=== PATIENT | male | born 1960 | race Caucasian/White ===

== ENCOUNTER → 2016-08-22 | Day surgery (SDC) | payer BC ==
--- NOTE | 2016-08-14 22:34 | HP ---
ADMITTING HISTORY AND PHYSICAL: DATE OF ADMISSION: 08/22/16 DATE OF : [birth year] AGE: 56 years. SEX: Male. SURGEON: Brian Jay MD ADMITTING DIAGNOSES: Right hydronephrosis and hydroureter. PLANNED PROCEDURE: Cystoscopy, right retrograde pyelogram, right ureteroscopy, and stent insertion. HISTORY OF PRESENT ILLNESS: Molina Aguayo is a 56-year-old gentleman who was being evaluated for reasons related to ventral abdominal hernias and was noted to have right hydronephrosis and hydroureter. He denies any flank pain, dysuria , or gross hematuria. There is no history of any prior urologic procedures and no history of renal calculi. PAST MEDICAL HISTORY: Significant for: 1. Diabetes mellitus. 2. Hypertension. 3. History of ventral hernia repair with subsequent recurrence. PAST SURGICAL HISTORY: Significant for ventral hernia repair. MEDICATIONS ON ADMISSION: 1. Metformin 1000 mg a day. 2. Lantus insulin daily. 3. Gemfibrozil 600 mg twice a day. 4. Lisinopril 20 mg a day. 5. Crestor 40 mg a day. 6. Aspirin 81 mg a day. ALLERGIES: Intravenously administered CONTRAST (rash). SOCIAL HISTORY: He is a former smoker who quit in 1998 and had a 30-pack year smoking history prior to that. PHYSICAL EXAMINATION GENERAL: Reveals a pleasant, healthy appearing, middle-aged gentleman. VITAL SIGNS: Blood pressure 122/80, pulse 93 per minute, and oxygen saturation 98% on room air. CARDIOVASCULAR: Regular rate and rhythm. S1, S2. LUNGS: Clear bilaterally. ABDOMEN: Soft with a noticeable ventral hernia. He had undergone a cystoscopy in my office, which had revealed a moderately enlarged prostate and otherwise normal appearing bladder. He has been started on Flomax 0.4 mg once a day in an effort to try and improve his bladder emptying and we will also be having urodynamics to check for possible neurogenic bladder prior to this scheduled surgery on 08/22/16. CC: LIZZETTE Gaitan; Dr. Voss; Brian Jay MD* [id number]/[facility] #: [id number] [facility]
[~2016-08-22] MED LIST: Buffered Lidocaine 1% SYR 3ML* 3 ML/SYR SYRINGE INTRADERM ONE; Buffered Lidocaine 1% SYR 3ML* 3 ML/SYR SYRINGE ONE; Furosemide IV* 10 MG/ML 2 ML VIAL (20 MG) ONE; Gentamicin ADULT (*) 140 MG in NS 0.9% 100 ML* 100 ML IVPB SCH; Iohexol 180 (CONTRAST) 10 ML SDV IV ONE; Lidocaine 2% MPF* 2 ML VIAL ONE; Ondansetron INJ* 2 MG/ML VIAL IV PRN; Ondansetron INJ* 2 MG/ML VIAL ONE; Propofol* 10 MG/ML 20 ML BTL IV PUSH ONE; Sodium Citrate/Citric Acid* 15 ML UDC ONE; Sodium Citrate/Citric Acid* 15 ML UDC PO ONE; Tamsulosin CAP* 0.4 MG ONE; cefTRIAXone(*) 2 GM ADDV.VIAL IVPB ONE; fentaNYL* 50 MCG/ML 2 ML VIAL (100 MCG VIAL) IV PRN; fentaNYL* 50 MCG/ML 2 ML VIAL (100 MCG VIAL) ONE
--- NOTE | 2016-08-22 13:34 | RAD ---
CPT II Codes: 6045F INDICATION: Right hydronephrosis. Fluoroscopic services provided for referring physician. 15 seconds of fluoroscopy time was used. 16 spot images demonstrates right hydronephrosis and hydroureter. There is placement of a right ureteral stent. There is likely a distal right ureteral obstruction. IMPRESSION: Fluoroscopic services provided for referring physician. There is right hydronephrosis noted. Right ureteral stent is placed.
[2016-08-22 15:08] VITALS: BP 113/73
--- NOTE | 2016-08-23 15:16 | OP ---
DATE OF OPERATION: 08/22/16 - [facility] DATE OF : 58 SURGEON: Brian Jay MD ANESTHESIOLOGIST: Gautam Pickett MD ANESTHESIA: General. PRE-OP DIAGNOSES: Right hydronephrosis and hydroureter. POST-OP DIAGNOSES: Right hydronephrosis and hydroureter. OPERATIVE PROCEDURE: Cystoscopy, right retrograde pyelogram, right ureteroscopy , and right stent insertion. INDICATIONS: Molina Aguayo is a 56-year-old gentleman who was evaluated for voiding dysfunction and right hydronephrosis, he is now being brought in for further evaluation and management of the hydronephrosis. COMPLICATIONS: None. STENT USED: 8.5-Wolof 28-cm stent, right ureter. POSTOPERATIVE CONDITION: Stable. OPERATIVE FINDINGS: 1. Markedly enlarged prostate. 2. Trabeculated but otherwise normal-appearing bladder. 3. Severe right hydronephrosis and hydroureter with dilated ureter all the way down to the level of the ureterovesical junction with no evidence of any obstructing lesion or calculus noted within the ureter. DESCRIPTION OF PROCEDURE: After induction of general anesthesia, the patient was placed in dorsal lithotomy position. Sequential compression devices were in place and functioning. Initial cystoscopy revealed a normal-appearing urethra, a significantly enlarged prostate, and a trabeculated but otherwise normal-appearing bladder. A guidewire was introduced into the right orifice. Retrograde pyelogram revealed significant right hydronephrosis and a very dilated ureter all the way down to the bladder. A 6-Wolof semi-rigid ureteroscope was introduced and advanced under direct vision. The orifice was a little bit narrow, but right above the orifice, the ureter was significantly dilated all the way to the level of the proximal ureter. There was no evidence of any calculus or any lesion noted within the ureter and I suspect that the obstruction was due to the ureter being compressed at the level of the thick walled bladder as it entered the bladder. An 8.5-Wolof 28-cm silicone stent was introduced and positioned under fluoroscopy with good proximal and distal positioning obtained. The plan will be to leave the stent in for 4 to 6 weeks, assess for resolution of the hydronephrosis, and then he will need close monitoring to see if there is any recurrence of the obstruction after stent removal. CC: Rani Lim, SHANIKA* [id number]/[facility] #: [id number] [facility]
== END | disposition home or self-care (01) ==
LOC: OR 10:05
PROVIDERS: ATTEND Urology
DX: N13.30 Unspecified hydronephrosis (principal); N13.4 Hydroureter; N40.0 Benign prostatic hyperplasia without lower urinary tract symptoms; E11.8 Type 2 diabetes mellitus with unspecified complications; Z79.4 Long term (current) use of insulin; I10 Essential (primary) hypertension; K43.9 Ventral hernia without obstruction or gangrene; Z87.891 Personal history of nicotine dependence
CPT/HCPCS: 74420; A9270-GY; C1876; J0696; J1580; J1940; J2405; J2704; J3010

== ENCOUNTER 2017-07-22 07:45 | Inpatient (IN) | payer BC ==
--- NOTE | 2017-07-13 12:47 | HP ---
DATE OF ADMISSION: 07/22/2017. This patient is scheduled for AA admission by Dr. James. DATE OF PREOPERATIVE HISTORY AND PHYSICAL EXAMINATION: 07/10/2017. ATTENDING SURGEON: Dr. Cristiano James * (dictated by Linh Curtis NP). CHIEF COMPLAINT: Incisional hernia and morbid obesity. HISTORY OF PRESENT ILLNESS: The patient is a 57-year-old, obese male, known to Dr. James after evaluation for a symptomatic incisional abdominal hernia. The patient is status post laparoscopic reduction and repair of incarcerated umbilical hernia with mesh by Dr. Larsen 11/08/2013. Dr. James had recommended preoperative weight loss at the time that the hernia was minimally symptomatic. The patient has tried with some success to lose approximately ten pounds. He does not wish to entertain surgical weight loss and in the meantime , the abdominal hernia has become more symptomatic. He continues to wear an abdominal binder at all times. He denies nausea, vomiting or obstipation. He periodically has abdominal discomfort and feels that the hernia has enlarged. He also has a palpable solid abdominal mass to the left of the midline. CAT scan of the abdomen and pelvis July 2016 described the mass as a cystic structure arising from the left rectus muscle. Dr. James has examined the patient and has advised open ventral hernia repair with mesh that will require component separation and excision of the cystic abdominal lesion and possible bowel resection. Dr. James discussed the nature of the surgical procedure, the rationale for the procedure, the relevant risks and benefits, and today I reviewed the expected postoperative care and recovery and the patient understands that he will spend at least one night in the hospital and possibly longer. The patient has had a chance to ask questions and stated that he understands the information and is satisfied with the answers given to his questions. He will sign surgical consent on the day of surgery. PAST MEDICAL HISTORY: Significant for type 2 diabetes, hypertension, hyperlipidemia, obstruction sleep apnea requiring the use of CPAP, and right hydronephrosis. PAST SURGICAL HISTORY: Laparoscopic reduction and repair of incarcerated umbilical hernia with mesh by Dr. Larsen 11/08/2013 and cysto with stent placement in the right ureter July 2016. MEDICATIONS: 1. Crestor 40 mg p.o. daily. 2. Metformin 1500 mg in the morning and 1000 mg in the evening. 3. Lantus SoloSTAR 50 units daily at bedtime. 4. Gemfibrozil 600 mg in the morning and 600 mg in the evening. 5. Lisinopril 20 mg p.o. daily. 6. Trulicity 1.5 mg weekly on Thursday. 7. Tamsulosin 0.4 mg p.o. daily. 8. Dulcolax laxative as needed. 9. Ipratropium nasal spray one spray prn for sinus drainage. 10. Aspirin 81 mg p.o. daily. He was instructed to hold his aspirin for five days preoperative and take the last dose 07/16/2017. ALLERGIES: VISIPAQUE CONTRAST DYE CAUSED HIVES. No latex or food allergies. FAMILY HISTORY: No known anesthesia complications, bleeding tendencies, or clotting disorders. 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 He is a former smoker for approximately 40 years. He denies the use of alcohol or other substances. REVIEW OF SYSTEMS: Constitutional: No fevers, chills, excessive fatigue. Endocrine: Type 2 diabetes, followed at [place]; fingerstick blood sugars run anywhere from 160 to 200. He denies any episodes of hypoglycemia. Respiratory : No excessive dyspnea on exertion, no chronic cough. Cardiovascular: No anginal chest pain or palpitations. Gastrointestinal: No nausea, vomiting, diarrhea, or chronic constipation. He uses stool softeners as needed. No change in bowel habits. Genitourinary: No dysuria. Musculoskeletal: No chronic back pain. Neurologic: No headache, blurred vision, areas of focal weakness or numbness. General: No history of deep vein thrombosis or pulmonary embolism. No previous anesthesia complications or bleeding tendencies and he has never received a blood transfusion. PHYSICAL EXAMINATION GENERAL: The patient is a 57-year-old, morbidly obese male in no acute distress. VITAL SIGNS: Height 73 inches, weight 281 pounds, body mass index 37. Blood pressure 118/72, pulse 90 and regular, respiratory rate 18, temperature 98.7 tympanic. SKIN: Warm, dry, intact. HEENT: Benign. NECK: Supple. No cervical lymphadenopathy. No carotid bruits. BACK: No CVA tenderness. LUNGS: Breath sounds bilaterally clear and equal. HEART: Regular rate and rhythm. No murmurs or rubs appreciated. ABDOMEN: Massively obese, soft. Known ventral hernia at previous umbilical incision site is mostly to the right of midline and is approximately 10 cm in size. The solid cystic lesion left of the midline is approximately 6 cm in size. No other obvious masses or organomegaly, but exam is limited by body habitus. EXTREMITIES: Warm without edema or skin ulcerations. GENITALIA: Exam deferred. RECTAL: Exam deferred. NEUROLOGIC: Alert and oriented times three, steady gait. IMPRESSION: 1. Incisional hernia without obstruction or gangrene. 2. Cystic abdominal mass. PLAN: AA admission to Dr. James's service on 07/22/2017 for open ventral hernia repair with mesh, excision of abdominal lesion and possible bowel resection. HECTOR CURTIS, SHANIKA [id number]/[facility] #: [id number] [facility]
[~2017-07-22 07:45] MED LIST changes: +Buffered Lidocaine 0.9% SYRIN* 5 ML/SYR SYRINGE INTRADERM ONE; -Buffered Lidocaine 1% SYR 3ML* 3 ML/SYR SYRINGE INTRADERM ONE; -Buffered Lidocaine 1% SYR 3ML* 3 ML/SYR SYRINGE ONE; +DiMENhydriNATE IV* 50 MG/ML VIAL IV PUSH PRN; +Famotidine IV* 10 MG/ML 2 ML (20 mg) IV ONE; -Furosemide IV* 10 MG/ML 2 ML VIAL (20 MG) ONE; -Gentamicin ADULT (*) 140 MG in NS 0.9% 100 ML* 100 ML IVPB SCH; -Iohexol 180 (CONTRAST) 10 ML SDV IV ONE; -Lidocaine 2% MPF* 2 ML VIAL ONE; +Morphine INJ* 2 MG/ML 1 ML CARPUJECT IV PRN; -Ondansetron INJ* 2 MG/ML VIAL ONE; +PROCHLORPERAZINE INJ 5 MG/ML 2 ML VIAL IV PRN; -Propofol* 10 MG/ML 20 ML BTL IV PUSH ONE; -Sodium Citrate/Citric Acid* 15 ML UDC ONE; -Sodium Citrate/Citric Acid* 15 ML UDC PO ONE; -Tamsulosin CAP* 0.4 MG ONE; -cefTRIAXone(*) 2 GM ADDV.VIAL IVPB ONE; -fentaNYL* 50 MCG/ML 2 ML VIAL (100 MCG VIAL) IV PRN; -fentaNYL* 50 MCG/ML 2 ML VIAL (100 MCG VIAL) ONE; +oxyCODONE/Acetamin 5/325 MG* TAB PO PRN
[2017-07-22] MEDS ORDERED: ceFAZolin 1 GM ADVAN(*) 1 GM ADDV.VIAL IVPB ONE (10:30)
[2017-07-22] MEDS ORDERED: Buffered Lidocaine 0.9% SYRIN* 5 ML/SYR SYRINGE ONE (10:30)
[2017-07-22] MEDS ORDERED: ceFAZolin 2 GM PREMIX (*) 2 GM/50 ML BAG IVPB ONE (10:30)
[2017-07-22] MEDS ORDERED: Famotidine IV* 10 MG/ML 2 ML (20 mg) ONE (10:31)
[2017-07-22] MEDS ORDERED: Heparin VIAL(*) 5000 UNITS/ML VIAL (FIVE THOUSAND) ONE (10:31)
[2017-07-22] MEDS ORDERED: KETAMINE HCL* 50 MG/ML 10 ML VIAL ONE (12:00)
[2017-07-22] MEDS ORDERED: Atracurium* 10 MG/ML 10 ML VIAL ONE (12:00)
[2017-07-22] MEDS ORDERED: Midazolam* 1 MG/ML 10 ML VIAL (10 MG) ONE (12:00)
[2017-07-22] MEDS ORDERED: fentaNYL* 50 MCG/ML 5 ML VIAL (250 MCG VIAL) ONE (12:00)
[2017-07-22] MEDS ORDERED: Lidocaine 2% PF * 5 ML VIAL ONE (13:14)
[2017-07-22] MEDS ORDERED: Propofol* 10 MG/ML 20 ML BTL IV PUSH ONE (13:14)
[2017-07-22] MEDS ORDERED: Ondansetron INJ* 2 MG/ML VIAL ONE ×2 (13:14→15:59)
[2017-07-22] MEDS ORDERED: PROCHLORPERAZINE INJ 5 MG/ML 2 ML VIAL ONE ×2 (13:14→15:59)
[2017-07-22] MEDS ORDERED: Morphine INJ* 10 MG/ML 1 ML CARPUJECT ONE (13:28)
[2017-07-22] MEDS ORDERED: Phenylephrine IV* 40 MCG/ML 10 ML SYRINGE ONE (14:46)
[2017-07-22] MEDS ORDERED: Neostigmine Methylsulfate* 2 MG/2 ML SYRINGE ONE (15:04)
[2017-07-22] MEDS ORDERED: Glycopyrrolate IV* 0.2 MG/ML 1 ML VIAL ONE (15:04)
[2017-07-22] MEDS ORDERED: Ondansetron INJ* 2 MG/ML VIAL IV PRN (15:39)
[2017-07-22] MEDS ORDERED: Docusate CAP* 100 MG PO PRN (15:39)
[2017-07-22] MEDS ORDERED: oxyCODONE/Acetamin 5/325 MG* TAB PO PRN (15:39)
[2017-07-22] MEDS ORDERED: fentaNYL* 50 MCG/ML 2 ML VIAL (100 MCG VIAL) ONE (15:45)
[2017-07-22] MEDS: fentaNYL* 50 MCG/ML 2 ML VIAL (100 MCG VIAL) IV PRN ×2 (15:46→16:02)
[2017-07-22] MEDS ORDERED: Dextrose 50% Syringe 50 ML* 25 GM/50 ML SYRINGE IV PUSH PRN (15:48)
[2017-07-22] MEDS ORDERED: IPRATROPIUM BROMIDE 0.06% BOTH NARES PRN (15:50)
--- NOTE | 2017-07-22 15:51 | SURGPN ---
Brief Operative Note - Surgery Procedures: Procedures Pre-OP Diagnoses: recurrent ventral hernia Post-op Diagnosis: same Procedure: Exploratory laparotomy, EVELIN, removal of abdominal cyst, primary repair of ventral hernia with mesh Surgeon: Erika Asst: Liset Weeksthevinoda: DEA [place] EBL: 250c IVF: 3000cc LR Specimen: 1.hernia sac 2.abdmoninal cyst Drains: #10, #7 Lazarus in subQ space Complications: None
[2017-07-22] MEDS ORDERED: Insulin LISPRO* 1 UNITS UNIT SUBCUT ONE (15:58)
[2017-07-22] MEDS ORDERED: Morphine PCA ADULT* 5 MG/ML 30 ML PCA SCH (16:00)
[2017-07-22] MEDS ORDERED: [UNRECOGNIZED DRUG - OTHER] ONE (16:27)
[2017-07-22] MEDS ORDERED: Morphine PCA ADULT* 5 MG/ML 30 ML ONE (16:31)
[2017-07-22] MEDS: Insulin LISPRO* 1 UNITS UNIT SUBCUT SCH ×2 (19:04→21:10)
[2017-07-22] MEDS: Atorvastatin* 80 MG TAB PO SCH (20:56)
[2017-07-22] MEDS: Tamsulosin CAP* 0.4 MG PO SCH (20:57)
[2017-07-22] MEDS: Gemfibrozil TAB* 600 MG PO SCH (20:57)
[2017-07-22] MEDS: Lisinopril TAB* 10 MG PO SCH (20:57)
--- NOTE | 2017-07-22 22:31 | OP ---
CC: Rani Lim NP * DATE OF OPERATION: 07/22/17 - ROOM #341 DATE OF : 58 SURGEON: Cristiano James MD HEALTHCARE SALES REPRESENTATIVE: PEARL Grimaldo ANESTHESIOLOGIST: Dr. Ch. ANESTHESIA: General anesthesia. PRE-OP DIAGNOSIS: Recurrent ventral hernia. POST-OP DIAGNOSIS: Recurrent ventral hernia. OPERATIVE PROCEDURE: Exploratory laparotomy, lysis of adhesions, removal of abdominal cyst, primary closure of ventral hernia with mesh, and removal of umbilicus. ESTIMATED BLOOD LOSS: 250 cc. IV FLUIDS: 3000 cc of lactated Ringer's. SPECIMENS: 1. Hernia sac. 2. Abdominal cyst. DRAINS: #10 and a #7 RYLAN drain left in the subcutaneous space. [place] catheter also inserted and remained at the end of the procedure. DESCRIPTION OF PROCEDURE: Mr. Aguayo was identified in the preoperative area, case discussed with him and his family member again. Consent was signed, he was marked, he was brought to the operating room, and placed on the operating room table in a supine position. Preoperative antibiotics were given. Sequential devices were placed on bilateral lower extremities. General anesthesia was induced. The patient's abdomen was clipped to hair and then prepped and draped in a standard surgical fashion. A time-out was performed. We approached the previously identified ventral hernia, this was reducible with the exception of a more firm lesion on the left side consistent with the cystic structure noted on CT scan. Incision was started on the right side of the umbilicus. This was extended approximately 4 fingerbreadths superior to the umbilicus and approximately 5 fingerbreadths below the umbilicus. We dissected slowly over the hernia sac. Hernia sac was entered, small bowel was encountered. There was no free fluid. It was a sliding type hernia with significant amount of small bowel adhered to the side wall of the hernia sac. We extended our incision superiorly. We were able to get into the more superior plain of the hernia sac and identify fascia. We had to incise the fascia superiorly and inferiorly and then we carried on with significant amount of lysis of adhesions. This took approximately an hour taking down the adhesions both at the hernia sac and small bowel adhered to itself. As we extended our work towards the left side taking down adhesions, we noted that there was another hernia with loop of small bowel extending into the medial portion of this hernia sac and this was where the known cystic lesion was based on radiographic studies. We slowly removed the small bowel from this hernia sac at its neck. I did have to open up the neck somewhat of this smaller hernia just left of the main hernia and remove a cystic structure. It was not attached to anything by this point, but it was probably because of blunt dissection that I utilized in the cavity itself. This was passed off as specimen. After additional lysis of adhesions along with omentum, this was all freed up off the abdominal wall and we were able to take the full hernia sac along with previously placed mesh off with sharp dissection. It was passed off as specimen. I made advancement flaps laterally both on the right and the left identifying fascia and clearing away this hernia sac as needed until we were able to bring the 2 edges of the fascia together in more of a Z-plasty style than on a direct left to right fashion. This was due to the second hernia portion that had the cystic lesion in the knuckle of small bowel. The defect was measured to be approximately 8 cm in the transverse fashion. The edges of the fascia would come back together with ease. The length of our linear incision through the fascia was approximately 12 cm. Next, a Ventrio Bard type mesh was opened up, 14 x 18 cm. This was parachuted in taking care to place the nonadherent side posteriorly and the permanent mesh portion of it anteriorly. We parachuted this in after placing 0 Surgipro sutures at both the lateral aspects and the superior aspect. This covered the defect nicely and we used the SecureStrap utilizing two full devices and placing a SecureStrap every centimeter along the parameter using the pockets in the mesh to appropriately place these. With the mesh intact, again we were able to bring the edges of the fascia together. We noted an additional hernia prior to placement of this mesh at the left side. This was approximately a 1 cm hernia sac. It was excised and passed off with the rest of the specimens and an 0 Vicryl suture was used in [id number] fashion to reapproximate this one portion that was far away from the other hernia. Next, we closed the fascial defect with a running #1 PDS suture starting inferiorly and superiorly and tying them in the middle. The wound was irrigated , hemostasis was achieved. A #7 RLYAN drain was placed through a stab incision on the right and a #10 RYLAN drain was passed through a stab incision to the left. This #10 drain was left to sit inferiorly in the subcutaneous space. Next, the skin michi were used to reapproximate the skin defect followed by sterile dressing and an abdominal binder. The patient was woken up and transferred to PACU in stable condition. [id number]/[facility] #: [id number] [facility]
[2017-07-23] MEDS: Heparin VIAL(*) 5000 UNITS/ML VIAL (FIVE THOUSAND) SUBCUT SCH ×3 (05:21→21:30)
[2017-07-23 06:55] LABS: Hematocrit 36 % (42-52); Hemoglobin 12.2 g/dl (14.0-18.0); Mean Corpuscular HGB Conc 34 g/dl (31-36); Mean Corpuscular Hemoglobin 30 pg (27-31); Mean Corpuscular Volume 88 fL (80-94); Mean Platelet Volume 7 um3 (7.4-10.4); Red Blood Count 4.09 10^6/ul (4.0-5.4); Red Cell Distribution Width 14 % (10.5-15); White Blood Count 8.6 10^3/ul (3.5-10.8)
[2017-07-23 07:06] LABS: BUN/Creatinine Ratio 23.8 (8-20); EGFR African American 120.7 (>60); EGFR Non-African American 93.9 (>60); Potassium 4.3 mmol/L (3.5-5.0)
[2017-07-23] MEDS: Famotidine IV* 10 MG/ML 2 ML (20 mg) IV SCH (08:29)
[2017-07-23] MEDS: Insulin LISPRO* 1 UNITS UNIT SUBCUT SCH ×4 (08:31→21:30)
[2017-07-23] MEDS: Gemfibrozil TAB* 600 MG PO SCH ×2 (08:32→21:31)
[2017-07-23] MEDS ORDERED: Famotidine IV * 20 MG in NS 0.9% 100 ML* 100 ML IVPB SCH (09:00)
--- NOTE | 2017-07-23 16:04 | PN ---
Progress Note - Progress Note Date of Service: 07/23/17 SOAP: Subjective: Pt seen and examined. We walked to arzola and back. Pt has abdominal pain. No nausea, no flatus. Objective: af vss uo good lungs clear abdo: dressing intact, tender diffusely RYLAN x2 serosang no calf tenderness labs noted Assessment: POD 1 complex ventral hernia repair Plan: advance diet slowly pain control d/c villatoro possible d/c tomorrow
[2017-07-23] MEDS ORDERED: Morphine INJ* 4 MG/ML 1 ML CARPUJECT IV PRN (16:30)
[2017-07-23] MEDS: Atorvastatin* 80 MG TAB PO SCH (17:44)
[2017-07-23] MEDS: Tamsulosin CAP* 0.4 MG PO SCH (17:45)
[2017-07-23] MEDS: Lisinopril TAB* 10 MG PO SCH (17:45)
[2017-07-23] MEDS ORDERED: diPHENhydraMINE PO* 25 MG PO PRN (18:21)
[2017-07-23] MEDS: Acetaminophen TAB* 325 MG PO PRN (21:31)
[2017-07-24] MEDS: Heparin VIAL(*) 5000 UNITS/ML VIAL (FIVE THOUSAND) SUBCUT SCH ×3 (05:41→21:01)
[2017-07-24 06:48] LABS: Hematocrit 34 % (42-52); Hemoglobin 11.4 g/dl (14.0-18.0); Mean Corpuscular HGB Conc 34 g/dl (31-36); Mean Corpuscular Hemoglobin 30 pg (27-31); Mean Corpuscular Volume 88 fL (80-94); Mean Platelet Volume 8 um3 (7.4-10.4); Red Blood Count 3.83 10^6/ul (4.0-5.4); Red Cell Distribution Width 15 % (10.5-15); White Blood Count 8.3 10^3/ul (3.5-10.8)
[2017-07-24] MEDS: Gemfibrozil TAB* 600 MG PO SCH ×2 (08:46→21:01)
[2017-07-24] MEDS: Famotidine IV* 10 MG/ML 2 ML (20 mg) IV SCH (08:46)
[2017-07-24] MEDS: Insulin LISPRO* 1 UNITS UNIT SUBCUT SCH ×4 (08:46→21:01)
[2017-07-24] MEDS: Acetaminophen TAB* 325 MG PO PRN ×3 (09:16→19:08)
--- NOTE | 2017-07-24 09:31 | PN ---
Progress Note - Progress Note Date of Service: 07/24/17 Note: Surgery Progress: S: POD #2. Feels about the same as yesterday. Heike clears, but not much appetite. No flatus or BM. No N/V. Ambulating. Voiding ok. Current Medications Acetaminophen (Tylenol Tab*) 650 mg PO Q4H PRN PRN Reason: Pain Or Temperature >101 F Last Admin: 07/24/17 09:16 Dose: 650 mg Atorvastatin Calcium (Lipitor*) 80 mg PO QPM [facility] Last Admin: 07/23/17 17:44 Dose: 80 mg Bisacodyl (Dulcolax Ec Tab*) 20 mg PO ONCE ONE Stop: 07/24/17 10:01 Dextrose (D50w Syringe 50 Ml*) 12.5 gm IV PUSH .FOR FS < 60 - SS PRN PRN Reason: FS < 60 Diphenhydramine HCl (Benadryl Po*) 25 mg PO Q6H PRN PRN Reason: RASH Docusate Sodium (Colace Cap*) 100 mg PO BID PRN PRN Reason: CONSTIPATION Last Admin: 07/24/17 05:41 Dose: 100 mg Famotidine (Pepcid Iv*) 20 mg IV DAILY [facility] Last Admin: 07/24/17 08:46 Dose: 20 mg Gemfibrozil (Lopid Tab*) 600 mg PO BID [facility] Last Admin: 07/24/17 08:46 Dose: 600 mg Heparin Sodium (Porcine) (Heparin Vial(*)) 5,000 units SUBCUT Q8HR [facility] Last Admin: 07/24/17 05:41 Dose: 5,000 units Potassium Chloride/Sodium Chloride (Ns 0.45% Kcl 20 Meq 1000 Ml*) 1,000 mls @ 100 mls/hr IV PER RATE [facility] Insulin Human Lispro (Humalog*) 0 units SUBCUT ACHS [facility] PRN Reason: Protocol Last Admin: 07/24/17 08:46 Dose: 3 units Lisinopril (Prinivil Tab*) 20 mg PO QPM [facility] Last Admin: 07/23/17 17:45 Dose: 20 mg Metformin HCl (Glucophage*) 1,500 mg PO QAM [facility] Morphine Sulfate (Morphine Inj (Syringe)*) 4 mg IV Q3H PRN PRN Reason: PAIN - BREAKTHROUGH Non-Formulary Medication (Ipratropium [place] 0.06%) 1 spray BOTH NARES DAILY PRN PRN Reason: SINUS DRAINAGE Non-Formulary Medication (Metformin Hcl [Glumetza]) 1,000 mg PO QPM [facility] Ondansetron HCl (Zofran Inj*) 4 mg IV Q4H PRN PRN Reason: NAUSEA/VOMITING Oxycodone/Acetaminophen (Percocet 5/325 Tab*) 2 tab PO Q6H PRN PRN Reason: PAIN Tamsulosin HCl (Flomax Cap*) 0.4 mg PO QPM [facility] Last Admin: 07/23/17 17:45 Dose: 0.4 mg O: Vital Signs - 8 hr 07/24/17 07/24/17 03:54 07:49 Temperature 98.3 F 98.1 F Pulse Rate 100 97 Respiratory 16 20 Rate Blood Pressure 140/79 127/66 (mmHg) O2 Sat by Pulse 96 94 Oximetry Intake and Output Last 24 Hours 07/22/17 07/23/17 07/24/17 07/25/17 06:59 06:59 06:59 06:59 Intake Total 3300 5378 Output Total 1590 1859 Balance 1710 3519 Weight 280 lb Intake: IV Fluids 3100 3003 LR 3000 3003 NS 50ML, Cefazolin 1G 50 NS 50ML, Cefazolin 2G 50 Oral 200 2375 Output: RYLAN #1 120 30 RYLAN #2 195 199 RYLAN #3 50 Urine 1150 [place] 1025 480 Estimated Blood Loss 200 Other: Date of Last Bowel 07/21/17 Movement # Bowel Movements 1 Estimated Stool Amount Medium Gen: WN, NAD; appears somewhat "down" (pt states "I just woke up") Abd: midline incision clean; no erythema; BS hypoactive; JPs w/ serosang drainage. See output above. Sacral area: 6-8 cm area of mild erythema w/ induration, most to R of midline; there are also a couple of intact bullae in the midline. Will monitor. Pressure reduction (limited sitting, etc.) Laboratory Tests 07/23/17 07/23/17 07/23/17 11:30 16:33 21:22 WBC Hgb POC Glucose (mg/dL) 202 H 188 H 169 H 07/24/17 07/24/17 05:55 07:41 WBC 8.3 Hgb 11.4 L POC Glucose (mg/dL) 188 H A: s/p laparotomy w/ EVELIN, exc intra-abd cyst (path pend), hernia repair w/ mesh ; stable w/ poss ileus (vs constipation) P: patient seen with and examined by Dr. James; will try to adv diet; try Dulcolax (he uses 4 tabs at home prn w/ good results), and begin to resume some of his diabetes regimen. Cont IV until heike po and having some bowel activity. Fortunately he's requiring no narcotic at present.
[2017-07-24] MEDS ORDERED: NS 0.45% KCl 20 Meq 1000 ML* 1,000 ML IV SCH (10:00)
[2017-07-24] MEDS ORDERED: Bisacodyl EC TAB* 5 MG PO ONE (10:00)
[2017-07-24] MEDS: metFORMIN* 500 MG TAB PO SCH (10:20)
[2017-07-24] MEDS: NS 0.45% KCl 20 Meq 1000 ML* 1,000 ML IV SCH ×2 (10:21→23:42)
[2017-07-24] MEDS: Tamsulosin CAP* 0.4 MG PO SCH (17:57)
[2017-07-24] MEDS: Atorvastatin* 80 MG TAB PO SCH (17:57)
[2017-07-24] MEDS: Lisinopril TAB* 10 MG PO SCH (17:57)
[2017-07-24] MEDS ORDERED: metFORMIN* 1,000 MG TAB PO SCH (18:00)
[2017-07-24] MEDS ORDERED: Insulin GLARGINE(*) 1 UNITS UNIT SUBCUT SCH (21:00)
[2017-07-25] MEDS: Heparin VIAL(*) 5000 UNITS/ML VIAL (FIVE THOUSAND) SUBCUT SCH (05:54)
[2017-07-25 07:39] VITALS: BP 127/68
[2017-07-25] MEDS: Insulin LISPRO* 1 UNITS UNIT SUBCUT SCH ×2 (09:28→12:19)
[2017-07-25] MEDS: Gemfibrozil TAB* 600 MG PO SCH (09:28)
[2017-07-25] MEDS: metFORMIN* 500 MG TAB PO SCH (09:28)
[2017-07-25] MEDS: Famotidine IV* 10 MG/ML 2 ML (20 mg) IV SCH (09:30)
--- NOTE | 2017-07-25 10:13 | DS ---
CC: Rani Lim NP; [facility] DISCHARGE SUMMARY: DATE OF ADMISSION: DATE OF DISCHARGE: 07/25/17 HOSPITAL COURSE: Mr. Aguayo is a 57-year-old gentleman with a recurrent ventral hernia who was worke d up as an outpatient, suffered with clinically severe obesity as well and recommendation was for rep air of recurrent hernia and weight loss. The patient underwent some weight loss prior to surgery and was admitted on same day of surgery for repair of recurrent ventral hernia. A cystic structure was also removed. Pathology is pending. Please see operative report for full details. Postoperative period, the patient had two RYLAN drains in the subcutaneous face. He was transferred to the PACU and then onto the floor where he slowly improved. He had mild ileus in the postoperative pe riod, but slowly improved. By postoperative day 3, the patient was tolerating diet with good urine o utput, able to ambulate, getting up and getting down with some difficulty. He was ultimately ready f or discharge for followup in the office. PHYSICAL EXAMINATION: On day of discharge, the patient was examined. He was afebrile. Vital signs were stable. General: Alert and oriented x3, in no apparent distress. Head, ears, eyes, nose, and throat: Normocephalic and atraumatic. Sclerae anicteric. Mucous membranes are moist. Lungs: Juany r to auscultation bilaterally. Abdomen: Soft, obese, tender. Midline incision, staple line intact with no erythema, no drainage. RYLAN drain on the right was removed, it had minimal output. RYLAN drain o n the left was maintained, it had serosanguineous output. Sacral area showed stage I sacral decubitu s ulcer 4 x 2 cm. This was nontender. No calf tenderness. DISCHARGE INSTRUCTIONS: After discussion with the patient, the patient was feeling well and had no c omplaints. Only requiring pain medication minimally. He understood plan for discharge home. Contac t me if there are any issues and we would follow up in my office on . The patient understand s that he should call with any questions. We will stop his IV fluids as well as his subcutaneous hep lilibeth. He will resume all his previous medications. [id number]/[facility] #: [id number]
== END 2017-07-25 14:00 | disposition home or self-care (01) | DRG 221 ==
LOC: AA 10:19 → SSU 18:13
PROVIDERS: ADMIT Surgery; ATTEND Surgery
PROC: 0DN80ZZ Release Small Intestine, Open Approach (ICD-10-PCS; 2017-07-22)
PROC: 0DB80ZZ Excision of Small Intestine, Open Approach (ICD-10-PCS; 2017-07-22)
PROC: 0WUF0JZ Supplement Abdominal Wall with Synthetic Substitute, Open Approach (ICD-10-PCS; principal; 2017-07-22 12:45)
DX: K43.2 Incisional hernia without obstruction or gangrene (principal); K56.7 Ileus, unspecified; E66.01 Morbid (severe) obesity due to excess calories; G47.33 Obstructive sleep apnea (adult) (pediatric); E78.5 Hyperlipidemia, unspecified; I10 Essential (primary) hypertension; E11.9 Type 2 diabetes mellitus without complications; Z96.0 Presence of urogenital implants; K63.89 Other specified diseases of intestine; K66.0 Peritoneal adhesions (postprocedural) (postinfection); Z68.38 Body mass index [BMI] 38.0-38.9, adult; Z87.891 Personal history of nicotine dependence; Z91.041 Radiographic dye allergy status
CPT/HCPCS: 36415; 80048; 85025; 88302; 88304; A9270-GY; C1776; C1781; J0690; J0780; J1644; J2250; J2270; J2405; J2704; J3010

== ENCOUNTER 2017-09-09 10:13 | Emergency (ER) | payer BC ==
[2017-09-09 10:55] VITALS: BP 124/65
--- NOTE | 2017-09-09 11:21 | UC ---
Skin Complaint HPI - HPI Summary HPI Summary: Pt presents with drainage from sore at the top of his buttocks first noticed about 1 month ago. He tells me that 1 month ago he underwent multiple hernia repairs in his abdomen and was in the hospital for 4 days. He first noticed some tenderness of her lower back/upper buttocks at this time, but tells me the nurses told him there was nothing there. Over the last month he has had discomfort, drainage, and itching at this area. Denies fever, chills, SOB, chest pain, abdominal pain, n/v/d/c, or hx of MRSA. - History of Current Complaint Chief Complaint: UCSkin Time Seen by Provider: 09/09/17 10:59 Stated Complaint: PERSONAL Hx Obtained From: Patient Onset/Duration: Gradual Onset Timing: Constant Onset Severity: Mild Current Severity: Mild Pain Intensity: 1 Pain Scale Used: 0-10 Numeric - Allergy/Home Medications Allergies/Adverse Reactions: Allergies Allergy/AdvReac Type Severity Reaction Status Date / Time visapaque contrast dye AdvReac Severe hives, Uncoded 07/22/17 10:41 rash, eye swelling Review of Systems Constitutional: Negative Skin: Other - Skin breakdown and drainage upper buttocks Respiratory: Negative Cardiovascular: Negative Gastrointestinal: Negative Neurovascular: Negative Psychological: Negative All Other Systems Reviewed And Are Negative: Yes PMH/Surg Hx/FS Hx/Imm Hx Endocrine History: Diabetes, Dyslipidemia Cardiovascular History: Hypertension - Surgical History Surgical History: Yes Surgery Procedure, Year, and Place: hernia repair with mesh 2013. wisdom teeth extracted - Family History Known Family History: Positive: Cardiac Disease, Hypertension, Diabetes - Social History Occupation: Employed Full-time Lives: With Family Alcohol Use: Rare Substance Use Type: None Smoking Status (MU): Never Smoked Tobacco Type: Cigarettes Amount Used/How Often: 1-3 pack/day Have You Smoked in the Last Year: No When Did the Patient Quit Smoking/Using Tobacco: 1996 - Immunization History Most Recent Influenza Vaccination: fall 2014 Most Recent Tetanus Shot: "within past 10 years" Most Recent Pneumonia Vaccination: never Physical Exam Triage Information Reviewed: Yes Appearance: Well-Appearing, No Pain Distress, Well-Nourished Vital Signs: Initial Vital Signs Temp 98.4 F 09/09/17 10:49 Pulse 67 09/09/17 10:49 Resp 18 09/09/17 10:49 BP 124/65 09/09/17 10:49 Pulse Ox 98 09/09/17 10:49 Vital Signs Reviewed: Yes Neck: Positive: Supple, Nontender, No Lymphadenopathy Respiratory: Positive: Lungs clear, Normal breath sounds, No respiratory distress, No accessory muscle use Cardiovascular: Positive: RRR, No Murmur, Pulses Normal Neurological: Positive: Alert Psychological: Positive: Age Appropriate Behavior Skin: Positive: Other - Stage 2/3 pressure ulcer at the apex of the intergluteal cleft 1.5cm in diameter. Surrounding granulation tissue and mild erythema. Mild purulent drainage. Mildly tender. No streaking, bleeding, edema, or necrotic tissue. Course/Dx - Course Course Of Treatment: Mepilex dressing placed. Wound culture obtained. Rx for bactrim to cover for infection as he is diabetic and MRSA coverage as he was hospitalized last month. Advised to f/u with PCP within 3-5 days for dressing change and potential wound clinic referral. - Diagnoses Provider Diagnoses: Stage 2 pressure ulcer apex of intergluteal cleft Discharge - Discharge Plan Condition: Stable Disposition: HOME Prescriptions: Sulfamethox/Trimethoprim DS* [Bactrim DS 800/160 TAB*] 1 tab PO BID #14 tab Patient Education Materials: How to Prevent Pressure Ulcers (ED), Pressure Ulcer (ED) Referrals: Rani Soler NP [Primary Care Provider] - Additional Instructions: If you develop a fever, shortness of breath, chest pain, new or worsening symptoms - please call your PCP or go to the ED. 1) Please schedule a follow up appointment with your PCP within the next 3-5 days for continued wound care. 2) Keep the dressing clean, dry, and intact at all times until your follow up appointment.
== END 2017-09-09 11:40 | disposition home or self-care (01) ==
LOC: UCEAST 10:13
DX: L89.302 Pressure ulcer of unspecified buttock, stage 2 (principal); E78.5 Hyperlipidemia, unspecified
CPT/HCPCS: 87070; 87205; 87640; 87641; 99212; G0463

== ENCOUNTER 2019-02-21 09:30 | Emergency (ER) | payer BC ==
--- NOTE | 2019-02-21 09:36 | UC ---
Ear Complaint HPI - HPI Summary HPI Summary: 58 yo male presents with hearing aid ear bud stuck in his left ear. He went to remove his hearing aids this morning and noticed the LEFT ear bud was gone. He believes it is lodged within his left ear as this has happened many times in the past. Denies pain - History of Current Complaint Stated Complaint: LT EAR BUD REMOVAL Time Seen by Provider: 02/21/19 09:36 Hx Obtained From: Patient Onset/Duration: Sudden Onset Severity Currently: None - Allergies/Home Medications Allergies/Adverse Reactions: Allergies Allergy/AdvReac Type Severity Reaction Status Date / Time visapaque contrast dye AdvReac Severe hives, Uncoded 02/21/19 09:38 rash, eye swelling PMH/Surg Hx/FS Hx/Imm Hx - Additional Past Medical History Additional PMH: SBO Endocrine History: Diabetes, Dyslipidemia Cardiovascular History: Hypertension - Surgical History Surgical History: Yes Surgery Procedure, Year, and Place: hernia repair with mesh 2013. wisdom teeth extracted - Family History Known Family History: Positive: Cardiac Disease, Hypertension, Diabetes - Social History Alcohol Use: Rare Substance Use Type: None Smoking Status (MU): Never Smoked Tobacco Type: Cigarettes Amount Used/How Often: 1-3 pack/day Have You Smoked in the Last Year: No When Did the Patient Quit Smoking/Using Tobacco: 1996 - Immunization History Most Recent Influenza Vaccination: fall 2014 Most Recent Tetanus Shot: "within past 10 years" Most Recent Pneumonia Vaccination: never Review of Systems All Other Systems Reviewed And Are Negative: Yes Constitutional: Positive: Negative Skin: Positive: Negative Eyes: Positive: Negative ENT: Positive: Other - ear bud within left ear Respiratory: Positive: Negative Cardiovascular: Positive: Negative Neurological: Positive: Negative Psychological: Positive: Negative Physical Exam - Summary Physical Exam Summary: GENERAL: NAD. WDWN. No pain distress. SKIN: No rashes, sores, lesions, or open wounds. HEENT: Head: AT/NC Ears: Hearing grossly normal. Levin/black ear bud within left ear canal. S/p removal: TM intact and WNL. CHEST: No accessory muscle use. Breathing comfortably and in no distress. CV: Pulses intact. Cap refill <2seconds NEURO: Alert. PSYCH: Age appropriate behavior. Triage Information Reviewed: Yes Vital Signs: Vital Signs: Temp Pulse Resp BP Pulse Ox 97.6 F 70 16 143/76 99 02/21/19 09:41 02/21/19 09:41 02/21/19 09:41 02/21/19 09:41 02/21/19 09:41 Vital Signs Reviewed: Yes Ear Complaint Course/Dx - Course Course Of Treatment: Left ear bud removed from left ear canal without difficulty with forceps. - Differential Dx/Diagnosis Provider Diagnosis: Foreign body of ear, left Discharge - Sign-Out/Discharge Documenting (check all that apply): Patient Departure All imaging exams completed and their final reports reviewed: No Studies - Discharge Plan Condition: Stable Disposition: HOME Referrals: Piero Banda MD [Primary Care Provider] - Additional Instructions: If you develop a fever, shortness of breath, chest pain, new or worsening symptoms - please call your PCP or go to the ED immediately. - Billing Disposition and Condition Condition: STABLE Disposition: Home
--- OUTSIDE RECORDS SUMMARY | 2019-02-21 09:38 | XMS REPORT | Continuity of Care Document ---
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 Onset: 05/07/2012 Type 2 diabetes mellitus Desiree Lutz M.D. Onset: 05/17/2012 Mixed hyperlipidemia Desiree Lutz M.D. Onset: 05/17/2012 Pure hyperglyceridemia Desiree Lutz M.D. Onset: 05/17/2012 Edema Desiree Lutz M.D. Onset: 05/17/2012 Essential hypertension LEATHA Garsia Onset: 10/26/2015 Family History Date Family Member(s) Observation Comments : (07/2012) Father due to CHF Mother Obesity Mother COPD Mother Dementia Social History Type Date Description Comments Sex Unknown Marital Status Lives With Daughter Lives With Spouse Diet Average daily caloric intake excessive Diet ; Reports increasing daily fiber intake. Reports trying to decrease night time food intake. Reports trying to decrease intake of concentrated sweets. Occupation Currently Working [employer] [facility] [place] Work Status Currently Working Tobacco Use Start: Unknown Former Cigarette End: Unknown Smoker 2 Packs Daily Cigarette Use Pack Years - 69 Tobacco Use Start: Unknown ; Quit Smoking in 1998 Smoking Status Reviewed: 07/16/17 ; Quit Smoking in 1998 ETOH Use Denies alcohol use Recreational Drug Use Denies Drug Use Tobacco Use Start: Unknown Patient is a former End: Unknown smoker Exercise Type/Frequency Exercises rarely Exercise Limitations Bilateral Foot Pain With Exercise Allergies, Adverse Reactions, Alerts Active Allergies Reaction Severity Comments Date Visipaque hives after abd CT with oral and IV 07/19/2016 contrast Inactive Allergies NKDA 07/02/2012 Medications Active Medications SIG Qnty Indications Ordering Date Provider Miralax 1 capful mixed as 510units K59.00 Piero 02/02/2019 3350NF per directions in MD Solo Powder water by mouth daily until stooling resumes. as needed after 2 days without stool. Aspirin Ec 1 by mouth every 90tabs Rani Lim, 03/07/2015 81mg day [facility] Tablets DR Whitney 1 tab po in the 90tabs Rani Lim, 03/07/2015 40mg evening [employer] Tablets Cpap please provide new Rani Lim, 10/30/2014 cpap with heater [employer] [facility] and humidfier Lantus Solostar Pen use with lantus SixBoxes Rani Lim, 02/02/2013 [place] pen daily 5x/day [employer] Compression use as directed 3Pairs R60.9 Rani Lim, 09/08/2012 Stockings for treatment of [employer] 20-30 peripheral edema any color but black Lisinopril take one tablet by 90tabs Piero 05/17/2012 20mg mouth every day MD Solo Tablets Gemfibrozil take one tablet by 180tabs Piero 600mg mouth twice a day MD Solo Tablets Metformin HCL take 1 and 1/2 220tabs Piero tablets by mouth MD Solo 1000mg Tablets every morning and 1 in the evening Lantus Solostar take 100 units 180units Piero daily as directed MD Solo 100Unit/ML Solution Pen-Inject Dulcolax 1 tab by mouth Unknown 5mg every night after Tablets DR dinner. Tamsulosin HCL 1 by mouth every Unknown day 0.4mg Capsules Trulicity Unknown 1.5mg/0.5ML Solution Pen-Inject Ipratropium [place] 1 spray into each 15ml Piero nostril every 6 MD Solo 0.06% Solution hours as needed History Medications Mepilex Dressing apply to wound 1Box L89.152 Rani Lim, 09/15/2017 - as directed [facility] 02/12/2018 Amoxicillin/Clavulanat 1 by mouth twice 20tabs J01.90 Shawnti R. 2016 - e Potassium a day for 10 [place], [facility] 06/25/2017 875-125mg days for Tablets infection Proair HFA 1-2 puffs every 8.500gm Piero 11/14/2016 - 108(90Base) 6 hours as MD Solo 01/27/2017 mcg/Act Aerosol needed Prednisone 3 by mouth every 13tabs L50.0 Kristopher Hurley, 07/19/2016 - 20mg Tablets day x 2 days, 2 M.D. 10/17/2016 by mouth every day x 2 days, 1 by mouth every day x 2 day, 1/2 by mouth every day x 2 days Hydrocortisone apply to 30gm Rani Lim, 01/29/2016 - 2.5% Cream affected area up [facility] 10/22/2016 to 4 x/day Cyclobenzaprine HCL 1-2 by mouth 30tabs M54.9 Rani Lim, 09/10/2015 - 5mg three times a [facility] 06/02/2016 Tablets day for muscle spasm, may cause drowsiness Mupirocin apply a small 22gm L73.9 Rani Lim, 08/01/2015 - 2% Ointment amount to [facility] 10/22/2016 affected area(s) daily until resolved Sulfamethoxazole/Trime take 1 tablet 20tabs Rani Lim, 08/01/2015 - thoprim DS twice a day for [employer] 09/10/2015 800-160mg 10 days Tablets Sulfamethoxazole/Trime 1 by mouth twice 20tabs 682.2 [place] RAbdullahi 2014 - thoprim DS a day for [place], [facility] 2015 800-160mg infection Tablets Novolog Flexpen use 1-7 units 5units Rani Lim, 01/16/2014 - tid based on [facility]- 06/02/2016 100Unit/ML Solution sliding scale Pen-Inject Bactroban apply a thin 22gm 684 Desiree Emery 12/12/2013 - 2% Ointment coat of the [place] Lutz 10/22/2016 ointment to the skin twice daily Abdominal Support 4 panel 2units Desiree Emery 11/28/2013 - 2X/3X-Large abdominal rAgentina Lutz 02/20/2015 2X/3X LG [facility] [place]. Use as directed to support hernia. Hernia Use as directed 1units 553.1 Desiree Emery 11/07/2013 - Belt/Double/X-Large [place] Lutz 11/28/2013 Mis Keflex 1 po tid 30caps 682.9 Desiree Emery 03/03/2013 - 500mg Capsules [place] Lutz 03/10/2013 Adam Hose use as directed 2Pairs 782.3 Desiree Emery 09/03/2012 - [place] Lutz 09/08/2012 Crestor take one tablet 90tabs Rani Lim, 05/17/2012 - 20mg Tablets by mouth at [facility] 03/07/2015 bedtime Fluticasone Propionate Unknown - 02/20/2015 50mcg/Act Suspension Crestor Take one pill po 30tabs Unknown - 10mg Tablets daily at 05/17/2012 Novolog Flexpen 18 units SC in 5units Desiree M. - the morning and [place] Lutz 01/16/2014 100Unit/ML Solution 30 units SC in the evening Lisinopril Take one tablet 90tabs Desiree M. - 10mg Tablets po daily [place] Lutz 05/17/2012 Bydureon Unknown - 2mg Pen 03/07/2015 Immunizations CPT Code Status Date Vaccine Lot # 16918 Given 08/18/2018 Influenza Virus Vaccine, Quadrivalent, 3 Yr > [id number] Quad, Preserv Free 23510 Given 07/16/2017 Influenza Virus Vaccine, Quadrivalent, 3 Yr > [id number] Quad, Preserv Free 03170 Given 05/20/2016 Influenza Virus Vaccine, Quadrivalent, 3 Yr > [id number] Quad, Preserv Free 94004 Given 07/06/2015 Influenza Virus Vaccine, Quadrivalent, 3 Yr > [id number] Quad, Preserv Free 46373 Given 05/01/2014 Pneumovax 23 (PPSV23) 65+ years or high risk 2 to [id number] 63 year old 34808 Given 05/01/2014 Influenza Virus Vaccine, Quadrivalent, 3 Yr > [id number] Quad, Preserv Free 04250 Given 04/25/2013 Influenza Vaccine-Preservative Free 3 Yrs And [id number] Above 83798 Given 05/07/2012 Influenza Vaccine-Preservative Free 3 Yrs And [id number] Above 50731 Given 04/14/2011 Tdap (Adacel) Vital Signs Date Vital Result Comment 02/02/2019 4:13pm Weight 291.00 lb Weight 131.998 kg BP Systolic 130 mmHg BP Diastolic 74 mmHg Heart Rate 86 /min Body Temperature 97.7 F Respiratory Rate 20 /min 08/18/2018 2:16pm Weight 298.00 lb Weight 135.173 kg BP Systolic 122 mmHg BP Diastolic 70 mmHg Heart Rate 84 /min Body Temperature 98.4 F Respiratory Rate 16 /min Height 72 inches 6'0" BMI (Body Mass Index) 40.4 kg/m2 O2 % BldC Oximetry 97 % 02/12/2018 9:32am Weight 285.00 lb Weight 129.276 kg BP Systolic 110 mmHg BP Diastolic 70 mmHg Heart Rate 88 /min Body Temperature 98.1 F Respiratory Rate 18 /min O2 % BldC Oximetry 97 % 09/15/2017 3:29pm Weight 280.00 lb Weight 127.008 kg BP Systolic 106 mmHg BP Diastolic 54 mmHg Heart Rate 68 /min Body Temperature 97.4 F Respiratory Rate 16 /min O2 % BldC Oximetry 98 % 07/16/2017 3:33pm Weight 286.00 lb Weight 129.730 kg BP Systolic 122 mmHg BP Diastolic 60 mmHg Heart Rate 75 /min Body Temperature 97.1 F O2 % BldC Oximetry 99 % 06/15/2017 1:52pm Weight 284.00 lb Weight 128.822 kg BP Systolic 122 mmHg BP Diastolic 62 mmHg Heart Rate 85 /min Body Temperature 97.3 F Respiratory Rate 16 /min O2 % BldC Oximetry 98 % 01/27/2017 4:42pm Weight 293.00 lb Weight 132.905 kg BP Systolic 126 mmHg BP Diastolic 70 mmHg Heart Rate 64 /min Body Temperature 96.4 F Respiratory Rate 16 /min O2 % BldC Oximetry 98 % 11/14/2016 4:22pm Weight 283.00 lb Weight 128.369 kg BP Systolic 150 mmHg BP Diastolic 70 mmHg Heart Rate 96 /min Body Temperature 98.0 F Respiratory Rate 16 /min O2 % BldC Oximetry 97 % 10/22/2016 11:19am Weight 281.00 lb Weight 127.462 kg BP Systolic 124 mmHg BP Diastolic 82 mmHg Heart Rate 84 /min 08/06/2016 3:00pm Weight 292.00 lb Weight 132.451 kg BP Systolic 112 mmHg BP Diastolic 56 mmHg Heart Rate 98 /min Body Temperature 98.0 F Respiratory Rate 20 /min O2 % BldC Oximetry 98 % 07/19/2016 9:11am Weight 293.00 lb Weight 132.905 kg BP Systolic 124 mmHg BP Diastolic 72 mmHg Heart Rate 70 /min Body Temperature 98.3 F Respiratory Rate 16 /min O2 % BldC Oximetry 98 % 06/02/2016 1:33pm Weight 294.00 lb Weight 133.358 kg BP Systolic 116 mmHg BP Diastolic 66 mmHg Heart Rate 85 /min Body Temperature 98.0 F Respiratory Rate 16 /min Height 73 inches 6'1" BMI (Body Mass Index) 38.8 kg/m2 O2 % BldC Oximetry 98 % 04/28/2016 3:06pm Weight 293.00 lb Weight 132.905 kg BP Systolic 118 mmHg BP Diastolic 62 mmHg Heart Rate 96 /min Body Temperature 97.9 F Respiratory Rate 20 /min 01/29/2016 9:16am Weight 291.00 lb Weight 131.998 kg BP Systolic 120 mmHg BP Diastolic 63 mmHg Heart Rate 63 /min Body Temperature 98.3 F 01/18/2016 2:58pm Weight 299.00 lb Weight 135.626 kg BP Systolic 120 mmHg BP Diastolic 68 mmHg Heart Rate 96 /min Body Temperature 98.3 F 10/26/2015 8:50am Weight 293.00 lb Weight 132.905 kg BP Systolic 120 mmHg BP Diastolic 72 mmHg Heart Rate 68 /min 09/10/2015 3:17pm Weight 299.00 lb Weight 135.626 kg BP Systolic 122 mmHg BP Diastolic 60 mmHg Heart Rate 68 /min 08/01/2015 4:56pm Weight 304.00 lb Weight 137.894 kg BP Systolic 122 mmHg BP Diastolic 70 mmHg Heart Rate 76 /min Body Temperature 97.5 F 06/26/2015 8:54am Weight 299.00 lb Weight 135.626 kg BP Systolic 130 mmHg BP Diastolic 68 mmHg Heart Rate 88 /min 03/22/2015 3:46pm Weight 306.00 lb Weight 138.802 kg BP Systolic 130 mmHg BP Diastolic 60 mmHg Heart Rate 76 /min Body Temperature 97.5 F 03/07/2015 9:23am Weight 305.00 lb Weight 138.348 kg BP Systolic 120 mmHg BP Diastolic 68 mmHg Heart Rate 52 /min 11/24/2014 3:38pm Weight 304.00 lb Weight 137.894 kg BP Systolic 124 mmHg BP Diastolic 68 mmHg Heart Rate 76 /min 10/09/2014 3:38pm Weight 305.00 lb Weight 138.348 kg BP Systolic 130 mmHg BP Diastolic 64 mmHg Heart Rate 92 /min Body Temperature 99.1 F O2 % BldC Oximetry 96 % 07/31/2014 3:25pm Weight 312.00 lb Weight 141.523 kg BP Systolic 114 mmHg BP Diastolic 64 mmHg Heart Rate 68 /min 05/01/2014 2:00pm Weight 304.00 lb Weight 137.894 kg BP Systolic 122 mmHg BP Diastolic 70 mmHg Heart Rate 80 /min Height 73 inches 6'1" BMI (Body Mass Index) 40.1 kg/m2 03/16/2014 9:21am Weight 307.00 lb Weight 139.255 kg BP Systolic 108 mmHg BP Diastolic 70 mmHg Heart Rate 72 /min Body Temperature 97.7 F 12/12/2013 2:50pm Weight 304.00 lb Weight 137.894 kg BP Systolic 126 mmHg BP Diastolic 68 mmHg Heart Rate 84 /min 11/07/2013 11:57am Weight 303.00 lb Weight 137.441 kg BP Systolic 138 mmHg BP Diastolic 82 mmHg Heart Rate 84 /min Height 72.50 inches 6'0.50" BMI (Body Mass Index) 40.5 kg/m2 07/11/2013 2:34pm Weight 297.00 lb Weight 134.719 kg BP Systolic 118 mmHg BP Diastolic 70 mmHg Heart Rate 88 /min Body Temperature 98.0 F 04/25/2013 1:55pm Weight 300.00 lb Weight 136.080 kg BP Systolic 128 mmHg BP Diastolic 70 mmHg Heart Rate 76 /min Height 72.50 inches 6'0.50" BMI (Body Mass Index) 40.1 kg/m2 03/11/2013 8:32am Weight 299.00 lb Weight 135.626 kg BP Systolic 138 mmHg BP Diastolic 62 mmHg Heart Rate 72 /min Body Temperature 96.6 F 03/08/2013 11:54am Weight 297.00 lb Weight 134.719 kg BP Systolic 110 mmHg BP Diastolic 70 mmHg Heart Rate 70 /min Body Temperature 97.0 F O2 % BldC Oximetry 98 % 03/05/2013 9:16am Weight 301.00 lb Weight 136.534 kg BP Systolic 110 mmHg BP Diastolic 60 mmHg Body Temperature 97.0 F 03/03/2013 3:15pm Weight 296.00 lb Weight 134.266 kg BP Systolic 120 mmHg BP Diastolic 80 mmHg Heart Rate 88 /min 09/03/2012 3:39pm Weight 300.00 lb Weight 136.080 kg BP Systolic 120 mmHg BP Diastolic 60 mmHg Heart Rate 96 /min 07/02/2012 4:17pm Weight 304.00 lb Weight 137.894 kg BP Systolic 112 mmHg BP Diastolic 64 mmHg Heart Rate 88 /min 05/17/2012 3:08pm Weight 297.00 lb Weight 134.719 kg BP Systolic 110 mmHg BP Diastolic 60 mmHg Heart Rate 100 /min 05/07/2012 8:50am Weight 300.00 lb Weight 136.080 kg BP Systolic 116 mmHg BP Diastolic 72 mmHg Heart Rate 68 /min Height 72.5 inches 6'0.50" BMI (Body Mass Index) 40.1 kg/m2 Results Test Date Facility Test Result H/L Range Note Creatinine 04/07/2018 [facility] Creatinine 0.84 mg/ dL N 0.67-1.17 [phone] Egfr Non- 93.5 >60 Egfr 113.2 >60 1 Laboratory test 04/07/2018 [facility] PSA Screening 0.803 0-4.0 2 finding [phone] Laboratory test 04/07/2018 [facility] Hemoglobin A1c 8.1 % High 4.0-5.6 3 finding [phone] Comp Metabolic 04/07/2018 [facility] Sodium 139 mmol/ L N 135-145 Panel [phone] Potassium 4.7 mmol/L N 3.5-5.0 Chloride 108 mmol/L N 101-111 Co2 Carbon Dioxide 26 mmol/L N 22-32 Anion Gap 5 mmol/L N 2-11 Glucose 145 mg/dL High 70-100 Blood Urea Nitrogen 24 mg/dL N 6-24 Creatinine 0.83 mg/dL N 0.67-1.17 BUN/Creatinine Ratio 28.9 High 8-20 Calcium 9.6 mg/dL N 8.6-10.3 Total Protein 6.2 g/dL Low 6.4-8.9 Albumin 4.0 g/dL N 3.2-5.2 Globulin 2.2 g/dL N 2-4 Albumin/Globulin Ratio 1.8 N 1-3 Total Bilirubin 0.40 mg/dL N 0.2-1.0 Alkaline Phosphatase 51 U/L N 34-104 Egfr Non- 94.8 >60 Egfr 114.7 >60 4 CBC Auto Diff 04/07/2018 [facility] White Blood 4.9 10^3/uL N 3.5-10.8 [phone] Count Red Blood Count 4.26 10^6/uL N 4.00-5.40 Hemoglobin 13.0 g/dL Low 14.0-18.0 Hematocrit 38 % Low 42-52 Mean Corpuscular Volume 88 fL N 80-94 Mean Corpuscular Hemoglobin 30 pg N 27-31 Mean Corpuscular HGB Conc 35 g/dL N 31-36 Red Cell Distribution Width 14 % N 10.5-15 Platelet Count 185 10^3/uL N 150-450 Mean Platelet Volume 8.0 um3 N 7.4-10.4 Abs Neutrophils 2.7 10^3/uL N 1.5-7.7 Abs Lymphocytes 1.6 10^3/uL N 1.0-4.8 Abs Monocytes 0.4 10^3/uL N 0-0.8 Abs Eosinophils 0.2 10^3/uL N 0-0.6 Abs Basophils 0 10^3/uL N 0-0.2 Abs Nucleated RBC 0 10^3/uL Granulocyte % 55.3 % N 38-83 Lymphocyte % 32.2 % N 25-47 Monocyte % 7.7 % High 0-7 Eosinophil % 3.9 % N 0-6 Basophil % 0.9 % N 0-2 Nucleated Red Blood Cells % 0.1 Statin 04/07/2018 [facility] Ast 16 U/L N 13-39 [phone] Alt 17 U/L N 7-52 Lipid Profile 04/07/2018 [facility] Triglycerides 390 mg/dL 5 (Trig/Chol/HDL) [phone] Cholesterol 123 mg/dL 6 HDL Cholesterol 28.6 mg/dL 7 LDL Cholesterol 16 mg/dL 8 Laboratory 04/07/2018 [facility] Hepatitis C Nonreactive Nonreactive test finding [phone] Antibody Laboratory 09/09/2017 [facility] Wound/Misc SEE RESULT 9, test finding [phone] Culture-Gram BELOW 10 Stain MRSA/S. aureus Ssti PCR SEE RESULT BELOW 11 Lipid Profile 08/05/2017 [facility] Triglycerides 245 mg/dL 12 (Trig/Chol/HDL) [phone] Cholesterol 130 mg/dL 13 HDL Cholesterol 31.1 mg/dL 14 LDL Cholesterol 50 mg/dL 15 CBC Auto Diff 08/05/2017 [facility] White Blood 8.3 10^3/uL N 3.5-10.8 [phone] Count Red Blood Count 4.08 10^6/uL N 4.0-5.4 Hemoglobin 12.2 g/dL Low 14.0-18.0 Hematocrit 36 % Low 42-52 Mean Corpuscular Volume 89 fL N 80-94 Mean Corpuscular Hemoglobin 30 pg N 27-31 Mean Corpuscular HGB Conc 34 g/dL N 31-36 Red Cell Distribution Width 15 % N 10.5-15 Platelet Count 289 10^3/uL N 150-450 Mean Platelet Volume 7 um3 Low 7.4-10.4 Abs Neutrophils 5.1 10^3/uL N 1.5-7.7 Abs Lymphocytes 1.9 10^3/uL N 1.0-4.8 Abs Monocytes 0.5 10^3/uL N 0-0.8 Abs Eosinophils 0.8 10^3/uL High 0-0.6 Abs Basophils 0.1 10^3/uL N 0-0.2 Abs Nucleated RBC 0.01 10^3/uL Granulocyte % 61.1 % N 38-83 Lymphocyte % 23.0 % Low 25-47 Monocyte % 5.8 % N 1-9 Eosinophil % 9.2 % High 0-6 Basophil % 0.9 % N 0-2 Nucleated Red Blood Cells % 0.1 Laboratory test 08/05/2017 [facility] Hemoglobin A1c 7.7 % High 4.0-5.6 16 finding [phone] Comp Metabolic 08/05/2017 [facility] Sodium 137 N 133-145 Panel [phone] mmol/L Potassium 4.9 mmol/L N 3.5-5.0 Chloride 103 mmol/L N 101-111 Co2 Carbon Dioxide 28 mmol/L N 22-32 Anion Gap 6 mmol/L N 2-11 Glucose 121 mg/dL High 70-100 Blood Urea Nitrogen 18 mg/dL N 6-24 Creatinine 0.86 mg/dL N 0.67-1.17 BUN/Creatinine Ratio 20.9 High 8-20 Calcium 9.8 mg/dL N 8.6-10.3 Total Protein 6.7 g/dL N 6.4-8.9 Albumin 4.1 g/dL N 3.2-5.2 Globulin 2.6 g/dL N 2-4 Albumin/Globulin Ratio 1.6 N 1-3 Total Bilirubin 0.30 mg/dL N 0.2-1.0 Alkaline Phosphatase 54 U/L N 34-104 Alt 15 U/L N 7-52 Ast 15 U/L N 13-39 Egfr Non- 91.3 >60 Egfr 117.5 >60 17 Hemoglobin/Hematacrit 07/10/2017 [facility] Hemoglobin 13.1 Low 14.0-18.0 [phone] g/dL Hematocrit 39 % Low 42-52 Basic Metabolic 07/10/2017 [facility] Sodium 132 mmol /L Low 133-145 Panel [phone] Potassium 4.6 mmol/L N 3.5-5.0 Chloride 101 mmol/L N 101-111 Co2 Carbon Dioxide 24 mmol/L N 22-32 Anion Gap 7 mmol/L N 2-11 Glucose 208 mg/dL High 70-100 Blood Urea Nitrogen 21 mg/dL N 6-24 Creatinine 0.84 mg/dL N 0.67-1.17 BUN/Creatinine Ratio 25.0 High 8-20 Calcium 9.5 mg/dL N 8.6-10.3 Egfr Non- 93.9 >60 Egfr 120.7 >60 18 Laboratory test 06/11/2017 [facility] PSA Screening 1.139 N 0-4.0 19 finding [phone] Laboratory test 06/01/2017 [facility] LDL Cholesterol 50 mg/dL N 20 finding [phone] Direct Lipid Panel 06/01/2017 [facility] Triglycerides 461 mg/dL N 21 [phone] Cholesterol 138 mg/dL N 22 HDL Cholesterol 31.4 mg/dL N 23 LDL Cholesterol (SEE NOTE) mg/dL N 24 CMP - Comprehensive 06/01/2017 [facility] Sodium 134 mmol/L N 133-145 Metabolic [phone] Potassium 4.7 mmol/L N 3.5-5.0 Chloride 104 mmol/L N 101-111 Co2 Carbon Dioxide 23 mmol/L N 22-32 Anion Gap 7 mmol/L N 2-11 Glucose 181 mg/dL High 70-100 Blood Urea Nitrogen 17 mg/dL N 6-24 Creatinine 0.75 mg/dL N 0.67-1.17 BUN/Creatinine Ratio 22.7 High 8-20 Calcium 9.4 mg/dL N 8.6-10.3 Total Protein 6.9 g/dL N 6.4-8.9 Albumin 4.3 g/dL N 3.2-5.2 Globulin 2.6 g/dL N 2-4 Albumin/Globulin Ratio 1.7 N 1-3 Total Bilirubin 0.30 mg/dL N 0.2-1.0 Alkaline Phosphatase 51 U/L N 34-104 Alt 17 U/L N 7-52 Ast 14 U/L N 13-39 Egfr Non- 107.0 N >60 Egfr 137.6 N >60 25 Laboratory test 06/01/2017 [facility] Hemoglobin A1c 7.6 % High 4.0-5.6 26 finding [phone] (Glyco HGB) CBC W/Auto 06/01/2017 [facility] White Blood 6.4 N 3.5-10.8 Differential [phone] Count 10^3/uL Red Blood Count 4.49 10^6/uL N 4.0-5.4 Hemoglobin 13.5 g/dL Low 14.0-18.0 Hematocrit 39 % Low 42-52 Mean Corpuscular Volume 88 fL N 80-94 Mean Corpuscular Hemoglobin 30 pg N 27-31 Mean Corpuscular HGB Conc 34 g/dL N 31-36 Red Cell Distribution Width 14 % N 10.5-15 Platelet Count 221 10^3/uL N 150-450 Mean Platelet Volume 8 um3 N 7.4-10.4 Abs Neutrophils 3.9 10^3/uL N 1.5-7.7 Abs Lymphocytes 1.8 10^3/uL N 1.0-4.8 Abs Monocytes 0.4 10^3/uL N 0-0.8 Abs Eosinophils 0.2 10^3/uL N 0-0.6 Abs Basophils 0.1 10^3/uL N 0-0.2 Abs Nucleated RBC 0.01 10^3/uL N Granulocyte % 60.6 % N 38-83 Lymphocyte % 27.9 % N 25-47 Monocyte % 6.3 % N 1-9 Eosinophil % 3.6 % N 0-6 Basophil % 1.6 % N 0-2 Nucleated Red Blood Cells % 0.1 N Laboratory test 01/23/2017 [facility] PSA Screening 0.919 ng/mL N 0-4.000 27 finding [phone] Lipid Profile 01/23/2017 [facility] Triglycerides 252 mg/dL N 28 (Trig/Chol/HDL) [phone] Cholesterol 115 mg/dL N 29 HDL Cholesterol 28.3 mg/dL N 30 LDL Cholesterol 36 mg/dL N 31 Laboratory test 01/23/2017 [facility] Hemoglobin A1c 7.6 % High Less than 32 finding [phone] 6.0 Comp Metabolic 01/23/2017 [facility] Sodium 136 N 133-145 Panel [phone] mmol/L Potassium 4.8 mmol/L N 3.5-5.0 Chloride 104 mmol/L N 101-111 Co2 Carbon Dioxide 27 mmol/L N 22-32 Anion Gap 5 mmol/L N 2-11 Glucose 167 mg/dL High 70-100 Blood Urea Nitrogen 16 mg/dL N 6-24 Creatinine 0.80 mg/dL N 0.67-1.17 BUN/Creatinine Ratio 20.0 N 8-20 Calcium 9.7 mg/dL N 8.6-10.3 Total Protein 6.7 g/dL N 6.4-8.9 Albumin 4.2 g/dL N 3.2-5.2 Globulin 2.5 g/dL N 2-4 Albumin/Globulin Ratio 1.7 N 1-3 Total Bilirubin 0.30 mg/dL N 0.2-1.0 Alkaline Phosphatase 50 U/L N 34-104 Alt 19 U/L N 7-52 Ast 21 U/L N 13-39 Egfr Non- 99.6 N >60 Egfr 128.1 N >60 33 CBC Auto Diff 01/23/2017 [facility] White Blood 6.0 10^3/uL N 3.5-10.8 [phone] Count Red Blood Count 4.49 10^6/uL N 4.0-5.4 Hemoglobin 12.9 g/dL Low 14.0-18.0 Hematocrit 39 % Low 42-52 Mean Corpuscular Volume 88 fL N 80-94 Mean Corpuscular Hemoglobin 29 pg N 27-31 Mean Corpuscular HGB Conc 33 g/dL N 31-36 Red Cell Distribution Width 15 % N 10.5-15 Platelet Count 206 10^3/uL N 150-450 Mean Platelet Volume 8 um3 N 7.4-10.4 Abs Neutrophils 3.7 10^3/uL N 1.5-7.7 Abs Lymphocytes 1.6 10^3/uL N 1.0-4.8 Abs Monocytes 0.4 10^3/uL N 0-0.8 Abs Eosinophils 0.2 10^3/uL N 0-0.6 Abs Basophils 0.1 10^3/uL N 0-0.2 Abs Nucleated RBC 0 10^3/uL N Granulocyte % 60.9 % N 38-83 Lymphocyte % 27.0 % N 25-47 Monocyte % 7.5 % N 1-9 Eosinophil % 3.7 % N 0-6 Basophil % 0.9 % N 0-2 Nucleated Red Blood Cells % 0 N Comp Metabolic Panel 10/17/2016 [facility] Sodium 137 mmol/L N 133-145 [phone] Potassium 4.4 mmol/L N 3.5-5.0 Chloride 103 mmol/L N 101-111 Co2 Carbon Dioxide 27 mmol/L N 22-32 Anion Gap 7 mmol/L N 2-11 Glucose 139 mg/dL High 70-100 Blood Urea Nitrogen 18 mg/dL N 6-24 Creatinine 0.84 mg/dL N 0.67-1.17 BUN/Creatinine Ratio 21.4 High 8-20 Calcium 9.6 mg/dL N 8.6-10.3 Total Protein 6.6 g/dL N 6.4-8.9 Albumin 4.2 g/dL N 3.2-5.2 Globulin 2.4 g/dL N 2-4 Albumin/Globulin Ratio 1.8 N 1-3 Total Bilirubin 0.30 mg/dL N 0.2-1.0 Alkaline Phosphatase 50 U/L N 34-104 Alt 13 U/L N 7-52 Ast 13 U/L N 13-39 Egfr Non- 94.2 N >60 Egfr 121.1 N >60 34 Laboratory test 10/17/2016 [facility] Hemoglobin A1c 6.6 % High Less than 35 finding [phone] (Glyco HGB) 6.0 CBC Auto Diff 10/17/2016 [facility] White Blood 6.1 N 3.5-10.8 [phone] Count 10^3/uL Red Blood Count 4.46 10^6/uL N 4.0-5.4 Hemoglobin 12.8 g/dL Low 14.0-18.0 Hematocrit 40 % Low 42-52 Mean Corpuscular Volume 89 fL N 80-94 Mean Corpuscular Hemoglobin 29 pg N 27-31 Mean Corpuscular HGB Conc 33 g/dL N 31-36 Red Cell Distribution Width 15 % N 10.5-15 Platelet Count 214 10^3/uL N 150-450 Mean Platelet Volume 8 um3 N 7.4-10.4 Abs Neutrophils 3.8 10^3/uL N 1.5-7.7 Abs Lymphocytes 1.6 10^3/uL N 1.0-4.8 Abs Monocytes 0.4 10^3/uL N 0-0.8 Abs Eosinophils 0.2 10^3/uL N 0-0.6 Abs Basophils 0.1 10^3/uL N 0-0.2 Abs Nucleated RBC 0 10^3/uL N Granulocyte % 62.8 % N 38-83 Lymphocyte % 26.2 % N 25-47 Monocyte % 7.0 % N 1-9 Eosinophil % 2.8 % N 0-6 Basophil % 1.2 % N 0-2 Nucleated Red Blood Cells % 0.1 N Lipid Profile 10/17/2016 [facility] Triglycerides 204 mg/dL N 36 (Trig/Chol/HDL) [phone] Cholesterol 118 mg/dL N 37 HDL Cholesterol 28.7 mg/dL N 38 LDL Cholesterol 49 mg/dL N 39 Laboratory test 08/22/2016 [facility] Point of 125 mg /dL High 74-106 40 finding [phone] Care Glucose Laboratory test 08/22/2016 [facility] Point of 120 mg /dL High 74-106 41 finding [phone] Care Glucose Laboratory test 08/22/2016 [facility] Point of 132 mg /dL High 74-106 42 finding [phone] Care Glucose CBC Auto Diff 08/07/2016 [facility] White Blood 6.3 N 3.5-10.8 [phone] Count 10^3/uL Red Blood Count 4.55 10^6/uL N 4.0-5.4 Hemoglobin 13.2 g/dL Low 14.0-18.0 Hematocrit 39 % Low 42-52 Mean Corpuscular Volume 87 fL N 80-94 Mean Corpuscular Hemoglobin 29 pg N 27-31 Mean Corpuscular HGB Conc 34 g/dL N 31-36 Red Cell Distribution Width 15 % N 10.5-15 Platelet Count 228 10^3/uL N 150-450 Mean Platelet Volume 7 um3 Low 7.4-10.4 Abs Neutrophils 4.1 10^3/uL N 1.5-7.7 Abs Lymphocytes 1.5 10^3/uL N 1.0-4.8 Abs Monocytes 0.5 10^3/uL N 0-0.8 Abs Eosinophils 0.2 10^3/uL N 0-0.6 Abs Basophils 0 10^3/uL N 0-0.2 Abs Nucleated RBC 0 10^3/uL N Granulocyte % 64.4 % N 38-83 Lymphocyte % 24.0 % Low 25-47 Monocyte % 7.6 % N 1-9 Eosinophil % 3.5 % N 0-6 Basophil % 0.5 % N 0-2 Nucleated Red Blood Cells % 0.1 N Comp Metabolic Panel 08/07/2016 [facility] Sodium 136 mmol/L N 133-145 [phone] Potassium 4.3 mmol/L N 3.5-5.0 Chloride 104 mmol/L N 101-111 Co2 Carbon Dioxide 23 mmol/L N 22-32 Anion Gap 9 mmol/L N 2-11 Glucose 164 mg/dL High 70-100 Blood Urea Nitrogen 17 mg/dL N 6-24 Creatinine 0.81 mg/dL N 0.67-1.17 BUN/Creatinine Ratio 21.0 High 8-20 Calcium 9.0 mg/dL N 8.6-10.3 Total Protein 6.8 g/dL N 6.4-8.9 Albumin 4.1 g/dL N 3.2-5.2 Globulin 2.7 g/dL N 2-4 Albumin/Globulin Ratio 1.5 N 1-3 Total Bilirubin 0.30 mg/dL N 0.2-1.0 Alkaline Phosphatase 47 U/L N 34-104 Alt 16 U/L N 7-52 Ast 15 U/L N 13-39 Egfr Non- 98.2 N >60 Egfr 126.3 N >60 43 Iron & Iron Binding 08/07/2016 [facility] Iron 58 g /dL N 50-212 Capacity [phone] Unsaturated Iron Binding 327 g/dL N Total Iron Binding Capacity 385 g/dL N 250-450 % Iron Saturation 15 % N 15-55 Laboratory test 08/07/2016 [facility] Cortisol 10.05 ?g/dL N 44 finding [phone] TSH (Thyroid Stim Horm) 1.80 mcIU/mL N 0.34-5.60 45 Ferritin 46.3 ng/mL N 24-336 46 Folic Acid (Folate) 18.35 ng/mL N >3.99 47 Vitamin B12 252 pg/mL N 180-914 48 Vitamin D Total 25(Oh) 12.4 ng/mL Low 30-50 49 Vitamin B1 (Whole Blood) 134 nmol/L N 70-180 50 Vitamin E Level 9.5 mg/L N 5.5 - 17.0 51 Laboratory test 07/18/2016 [facility] Point of Care 159 mg/dL High 74-106 52 finding [phone] Glucose Laboratory test 07/18/2016 [facility] Blood Urea 15 mg/dL N 6-24 finding [phone] Nitrogen BUN Creatinine 07/18/2016 [facility] Creatinine 0.77 N 0.67-1.17 [phone] mg/dL Egfr Non- 104.1 N >60 Egfr 133.9 N >60 53 Iron & Iron Binding 06/02/2016 [facility] Iron 75 g /dL N 50-212 54 Capacity [phone] Unsaturated Iron Binding 359 g/dL N Total Iron Binding Capacity 434 g/dL N 250-450 % Iron Saturation 17 % N 15-55 Laboratory test 06/02/2016 [facility] Hemoglobin A1c 7.9 % High Less 55 finding [phone] than 6.0 Urine 06/02/2016 [facility] Urine 97.67 N 56 Microalbumin [phone] Creatinine mg/dL Random Ur Microalbumin (mg/L) 26.5 mg/L N Urine Microalbumin/Creatinine 27.1 ug/mg N <31 CBC Auto Diff 05/20/2016 [facility] White Blood 5.8 10^3/uL N 3.5-10.8 [phone] Count Red Blood Count 4.34 10^6/uL N 4.0-5.4 Hemoglobin 12.9 g/dL Low 14.0-18.0 Hematocrit 39 % Low 42-52 Mean Corpuscular Volume 89 fL N 80-94 Mean Corpuscular Hemoglobin 30 pg N 27-31 Mean Corpuscular HGB Conc 33 g/dL N 31-36 Red Cell Distribution Width 14 % N 10.5-15 Platelet Count 213 10^3/uL N 150-450 Mean Platelet Volume 8 um3 N 7.4-10.4 Abs Neutrophils 3.4 10^3/uL N 1.5-7.7 Abs Lymphocytes 1.6 10^3/uL N 1.0-4.8 Abs Monocytes 0.5 10^3/uL N 0-0.8 Abs Eosinophils 0.2 10^3/uL N 0-0.6 Abs Basophils 0 10^3/uL N 0-0.2 Abs Nucleated RBC 0.01 10^3/uL N Granulocyte % 58.9 % N 38-83 Lymphocyte % 27.7 % N 25-47 Monocyte % 9.1 % High 1-9 Eosinophil % 3.6 % N 0-6 Basophil % 0.7 % N 0-2 Nucleated Red Blood Cells % 0.1 N Comp Metabolic Panel 05/20/2016 [facility] Sodium 138 mmol/L N 133-145 [phone] Potassium 4.6 mmol/L N 3.5-5.0 Chloride 104 mmol/L N 101-111 Co2 Carbon Dioxide 29 mmol/L N 22-32 Anion Gap 5 mmol/L N 2-11 Glucose 167 mg/dL High 70-100 Blood Urea Nitrogen 15 mg/dL N 6-24 Creatinine 0.79 mg/dL N 0.67-1.17 BUN/Creatinine Ratio 19.0 N 8-20 Calcium 9.8 mg/dL N 8.6-10.3 Total Protein 6.7 g/dL N 6.4-8.9 Albumin 4.3 g/dL N 3.2-5.2 Globulin 2.4 g/dL N 2-4 Albumin/Globulin Ratio 1.8 N 1-3 Total Bilirubin 0.30 mg/dL N 0.2-1.0 Alkaline Phosphatase 47 U/L N 34-104 Alt 13 U/L N 7-52 Ast 14 U/L N 13-39 Egfr Non- 101.1 N >60 Egfr 130.0 N >60 57 Lipid Profile 05/20/2016 [facility] Triglycerides 279 mg/dL N 58 (Trig/Chol/HDL) [phone] Cholesterol 121 mg/dL N 59 HDL Cholesterol 30.3 mg/dL N 60 LDL Cholesterol 35 mg/dL N 61 CBC Auto Diff 01/19/2016 [facility] White Blood 8.4 10^3/uL N 3.5-10.8 [phone] Count Red Blood Count 5.45 10^6/uL High 4.0-5.4 Hemoglobin 15.9 g/dL N 14.0-18.0 Hematocrit 47 % N 42-52 Mean Corpuscular Volume 87 fL N 80-94 Mean Corpuscular Hemoglobin 29 pg N 27-31 Mean Corpuscular HGB Conc 34 g/dL N 31-36 Red Cell Distribution Width 15 % N 10.5-15 Platelet Count 329 10^3/uL N 150-450 Mean Platelet Volume 8 um3 N 7.4-10.4 Abs Neutrophils 6.9 10^3/uL N 1.5-7.7 Abs Lymphocytes 0.6 10^3/uL Low 1.0-4.8 Abs Monocytes 0.8 10^3/uL N 0-0.8 Abs Eosinophils 0 10^3/uL N 0-0.6 Abs Basophils 0 10^3/uL N 0-0.2 Abs Nucleated RBC 0.01 10^3/uL N Granulocyte % 82.7 % N 38-83 Lymphocyte % 6.8 % Low 25-47 Monocyte % 9.9 % High 1-9 Eosinophil % 0.3 % N 0-6 Basophil % 0.3 % N 0-2 Nucleated Red Blood Cells % 0.1 N Comp Metabolic 01/19/2016 [facility] Sodium 129 mmol/ L Low 133-145 Panel [phone] Potassium 4.5 mmol/L N 3.5-5.0 Chloride 93 mmol/L Low 101-111 Co2 Carbon Dioxide 22 mmol/L N 22-32 Anion Gap 14 mmol/L High 2-11 Glucose 248 mg/dL High 70-100 Blood Urea Nitrogen 37 mg/dL High 6-24 Creatinine 1.58 mg/dL High 0.67-1.17 BUN/Creatinine Ratio 23.4 High 8-20 Calcium 10.0 mg/dL N 8.6-10.3 Total Protein 7.4 g/dL N 6.4-8.9 Albumin 4.3 g/dL N 3.2-5.2 Globulin 3.1 g/dL N 2-4 Albumin/Globulin Ratio 1.4 N 1-3 Total Bilirubin 0.60 mg/dL N 0.2-1.0 Alkaline Phosphatase 47 U/L N 34-104 Alt 14 U/L N 7-52 Ast 14 U/L N 13-39 Egfr Non- 45.6 N >60 Egfr 58.6 N >60 62 Laboratory test 01/19/2016 [facility] Lipase 8 U/L Low 11.0-82.0 finding [phone] C Reactive Protein 62.32 mg/L High < 5.00 63 Lactic Acid 1.9 mmol/L N 0.5-2.0 64 Urinalysis Profile 01/19/2016 [facility] Urine Color Alia N [phone] Urine Appearance Cloudy N Urine Specific [place] 1.021 N 1.010-1.030 Urine pH 5.0 N 5-9 Urine Urobilinogen Negative N Negative Urine Ketones Negative N Negative Urine Protein 1+(30 mg/dL) Abnormal Negative Urine Leukocytes Negative N Negative Urine Blood Negative N Negative Urine Nitrite Negative N Negative Urine Bilirubin Negative N Negative Urine Glucose 1+(50 mg/dL) Abnormal Negative Urine White Blood Cell Trace(0-5/hpf) N Absent Urine Red Blood Cell 1+(3-5/hpf) Abnormal Absent Urine Bacteria Absent N Absent Urine Hyaline Casts Present Abnormal Absent Urine Calcium Oxalate Cryst Present Abnormal Absent Comp Metabolic 11/15/2015 [facility] Sodium 137 mmol/ L N 133-145 65 Panel [phone] Potassium 4.5 mmol/L N 3.5-5.0 Chloride 104 mmol/L N 101-111 Co2 Carbon Dioxide 27 mmol/L N 22-32 Anion Gap 6 mmol/L N 2-11 Glucose 114 mg/dL High 70-100 Blood Urea Nitrogen 18 mg/dL N 6-24 Creatinine 0.87 mg/dL N 0.67-1.17 BUN/Creatinine Ratio 20.7 High 8-20 Calcium 9.5 mg/dL N 8.6-10.3 Total Protein 6.8 g/dL N 6.4-8.9 Albumin 4.4 g/dL N 3.2-5.2 Globulin 2.4 g/dL N 2-4 Albumin/Globulin Ratio 1.8 N 1-3 Total Bilirubin 0.40 mg/dL N 0.2-1.0 Alkaline Phosphatase 43 U/L N 34-104 Alt 18 U/L N 7-52 Ast 18 U/L N 13-39 Egfr Non- 90.8 N >60 Egfr 116.7 N >60 66 CBC Auto Diff 11/15/2015 [facility] White Blood 5.8 10^3/uL N 3.5-10.8 [phone] Count Red Blood Count 4.55 10^6/uL N 4.0-5.4 Hemoglobin 13.5 g/dL Low 14.0-18.0 Hematocrit 40 % Low 42-52 Mean Corpuscular Volume 88 fL N 80-94 Mean Corpuscular Hemoglobin 30 pg N 27-31 Mean Corpuscular HGB Conc 34 g/dL N 31-36 Red Cell Distribution Width 14 % N 10.5-15 Platelet Count 217 10^3/uL N 150-450 Mean Platelet Volume 7 um3 Low 7.4-10.4 Abs Neutrophils 3.6 10^3/uL N 1.5-7.7 Abs Lymphocytes 1.5 10^3/uL N 1.0-4.8 Abs Monocytes 0.4 10^3/uL N 0-0.8 Abs Eosinophils 0.2 10^3/uL N 0-0.6 Abs Basophils 0 10^3/uL N 0-0.2 Abs Nucleated RBC 0.01 10^3/uL N Granulocyte % 62.6 % N 38-83 Lymphocyte % 25.4 % N 25-47 Monocyte % 7.3 % N 1-9 Eosinophil % 4.1 % N 0-6 Basophil % 0.6 % N 0-2 Nucleated Red Blood Cells % 0.1 N Laboratory test 11/15/2015 [facility] Hemoglobin A1c 6.9 % High Less than 67 finding [phone] 6.0 Lipid Profile 11/15/2015 [facility] Triglycerides 242 N 68 (Trig/Chol/HDL) [phone] mg/dL Cholesterol 120 mg/dL N 69 HDL Cholesterol 25.9 mg/dL N 70 LDL Cholesterol 46 mg/dL N 71 HSV/VZV Derm PCR 08/01/2015 [facility] hs/VZ Source LESION ON N 72 [phone] ABDOME <SEE NOTE> HSV 1 PCR Negative N Negative HSV 2 PCR Negative N Negative 73 Varicella Zoster Source LESION ON ABDOME <SEE NOTE> N 74 Varicella Zoster Result Negative N Negative 75 CBC Auto Diff 06/20/2015 [facility] White Blood 6.2 10^3/uL N 4.8-10.8 [phone] Count Red Blood Count 4.58 10^6/uL N 4.0-5.4 Hemoglobin 13.5 g/dL Low 14.0-18.0 Hematocrit 42 % N 42-52 Mean Corpuscular Volume 91 fL N 80-94 Mean Corpuscular Hemoglobin 30 pg N 27-31 Mean Corpuscular HGB Conc 32 g/dL N 31-36 Red Cell Distribution Width 14 % N 10.5-15 Platelet Count 224 10^3/uL N 150-450 Mean Platelet Volume 9 um3 N 7.4-10.4 Abs Neutrophils 3.6 10^3/uL N 1.5-7.7 Abs Lymphocytes 1.8 10^3/uL N 1.0-4.8 Abs Monocytes 0.5 10^3/uL N 0-0.8 Abs Eosinophils 0.2 10^3/uL N 0-0.6 Abs Basophils 0.1 10^3/uL N 0-0.2 Abs Nucleated RBC 0 10^3/uL N Granulocyte % 58.4 % N 38-83 Lymphocyte % 29.6 % N 25-47 Monocyte % 7.4 % N 1-9 Eosinophil % 3.4 % N 0-6 Basophil % 1.2 % N 0-2 Nucleated Red Blood Cells % 0 N Comp Metabolic Panel 06/20/2015 [facility] Sodium 135 mmol/L N 133-145 [phone] Potassium 4.8 mmol/L N 3.5-5.0 Chloride 102 mmol/L N 101-111 Co2 Carbon Dioxide 26 mmol/L N 22-32 Anion Gap 7 mmol/L N 2-11 Glucose 212 mg/dL High 70-100 Blood Urea Nitrogen 17 mg/dL N 6-24 Creatinine 0.84 mg/dL N 0.67-1.17 BUN/Creatinine Ratio 20.2 High 8-20 Calcium 9.5 mg/dL N 8.6-10.3 Total Protein 6.5 g/dL N 6.4-8.9 Albumin 4.3 g/dL N 3.2-5.2 Globulin 2.2 g/dL N 2-4 Albumin/Globulin Ratio 2.0 N 1-3 Total Bilirubin 0.40 mg/dL N 0.2-1.0 Alkaline Phosphatase 51 U/L N 34-104 Alt 15 U/L N 7-52 Ast 14 U/L N 13-39 Egfr Non- 94.5 N >60 Egfr 121.6 N >60 76 Laboratory test 06/20/2015 [facility] Hemoglobin A1c 8.7 % High Less 77 finding [phone] (Glyco HGB) than 6.0 Lipid Profile 06/20/2015 [facility] Triglycerides 586 N 78 (Trig/Chol/HDL) [phone] mg/dL Cholesterol 142 mg/dL N 79 HDL Cholesterol 29.3 mg/dL N 80 CBC Auto Diff 02/15/2015 [facility] White Blood 6.1 10^3/uL N 4.8-10.8 [phone] Count Red Blood Count 4.25 10^6/uL N 4.0-5.4 Hemoglobin 13.0 g/dL Low 14.0-18.0 Hematocrit 39 % Low 42-52 Mean Corpuscular Volume 92 fL N 80-94 Mean Corpuscular Hemoglobin 31 pg N 27-31 Mean Corpuscular HGB Conc 33 g/dL N 31-36 Red Cell Distribution Width 14 % N 10.5-15 Platelet Count 228 10^3/uL N 150-450 Mean Platelet Volume 8 um3 N 7.4-10.4 Abs Neutrophils 3.6 10^3/uL N 1.5-7.7 Abs Lymphocytes 1.9 10^3/uL N 1.0-4.8 Abs Monocytes 0.4 10^3/uL N 0-0.8 Abs Eosinophils 0.2 10^3/uL N 0-0.6 Abs Basophils 0 10^3/uL N 0-0.2 Abs Nucleated RBC 0.01 10^3/uL N Granulocyte % 58.6 % N 38-83 Lymphocyte % 31.3 % N 25-47 Monocyte % 5.9 % N 1-9 Eosinophil % 3.5 % N 0-6 Basophil % 0.7 % N 0-2 Nucleated Red Blood Cells % 0.1 N Laboratory test 02/15/2015 [facility] Hemoglobin A1c 7.6 % High Less 81 finding [phone] (Glyco HGB) than 6.0 Lipid Profile 02/15/2015 [facility] Triglycerides 531 N 82 (Trig/Chol/HDL) [phone] mg/dL Cholesterol 143 mg/dL N 83 HDL Cholesterol 24.6 mg/dL N 84 LDL Cholesterol (SEE NOTE) mg/dL N 85 Comp Metabolic Panel 02/15/2015 [facility] Sodium 137 mmol/L N 133-145 [phone] Potassium 4.5 mmol/L N 3.5-5.0 Chloride 105 mmol/L N 101-111 Co2 Carbon Dioxide 24 mmol/L N 22-32 Anion Gap 8 mmol/L N 2-11 Glucose 213 mg/dL High 70-100 Blood Urea Nitrogen 16 mg/dL N 6-24 Creatinine 0.80 mg/dL N 0.67-1.17 BUN/Creatinine Ratio 20.0 N 8-20 Calcium 9.2 mg/dL N 8.6-10.3 Total Protein 6.3 g/dL Low 6.4-8.9 Albumin 4.2 g/dL N 3.2-5.2 Globulin 2.1 g/dL N 2-4 Albumin/Globulin Ratio 2.0 N 1-3 Total Bilirubin 0.30 mg/dL N 0.2-1.0 Alkaline Phosphatase 42 U/L N 34-104 Alt 17 U/L N 7-52 Ast 13 U/L N 13-39 Egfr Non- 100.4 N >60 Egfr 129.1 N >60 86 Laboratory test 10/23/2014 [facility] Hemoglobin A1c 8.7 % High Less 87 finding [phone] than 6.0 Laboratory test 10/09/2014 In House Lab Strep Screen NEG Neg finding ([phone])- - Laboratory test 10/09/2014 [facility] Throat Culture (SEE 88 finding [phone] NOTE) Laboratory test 07/31/2014 [facility] TSH (Thyroid 2.00 N 0.34-5.6 finding [phone] Stimulating IU/mL 0 Horm) Hemoglobin A1c 9.1 % High Less than 6.0 89 Laboratory test 04/25/2014 [facility] Hemoglobin A1c 9.9 % High Less 90, 91 finding [phone] than 6.0 Urine 04/25/2014 [facility] Ur Microalbumin 9.0 N < 30 92 Microalbumin [phone] (mg/L) mg/dL Random Urine Creatinine 51.20 mg/dL N Urine Microalbumin/Creatinine 17.5 N Less Than 31 Lipid Profile 04/25/2014 [facility] Triglycerides 521 mg/dL N 93 (Trig/Chol/HDL) [phone] Cholesterol 143 mg/dL N 94 HDL Cholesterol 28.8 mg/dL N 95 LDL Cholesterol (SEE NOTE) mg/dL N 96 Liver Function 04/25/2014 [facility] Total Protein 6.7 g/dL N 6.4-8.9 Panel [phone] Albumin 4.3 g/dL N 3.2-5.2 Globulin 2.4 g/dL N 2-4 Albumin/Globulin Ratio 1.8 N 1-3 Total Bilirubin 0.30 mg/dL N 0.2-1.0 Direct Bilirubin 0.10 mg/dL N 0.03-0.18 Indirect Bilirubin 0.2 mg/dL Low 0.3-1.0 Alkaline Phosphatase 51 U/L N 34-104 Alt 19 U/L N 7-52 Ast 15 U/L N 13-39 Laboratory test 04/25/2014 [facility] LDL Cholesterol 54 mg/dL N 97 finding [phone] Direct CBC No Diff 04/25/2014 [facility] White Blood Count 5.9 10^3/uL N 4.8-6 [phone] 0.8 Red Blood Count 4.36 10^6/uL N 4.0-5.4 Hemoglobin 13.4 g/dL Low 14.0-18.0 Hematocrit 39 % Low 42-52 Mean Corpuscular Volume 90 fL N 80-94 Mean Corpuscular Hemoglobin 31 pg N 27-31 Mean Corpuscular HGB Conc 34 g/dL N 31-36 Red Cell Distribution Width 14 % N 10.5-15 Platelet Count 212 10^3/uL N 150-450 Mean Platelet Volume 8 um3 N 7.4-10.4 Laboratory test 04/25/2014 [facility] TSH (Thyroid 2.14 N 0.34-5.60 98 finding [phone] Stimulating IU/mL Horm) Basic Metabolic 12/02/2013 [facility] Sodium 135 133-145 Panel [phone] mmol/L Potassium 4.2 mmol/L 3.7-5.6 Chloride 103 mmol/L 101-111 Co2 Carbon Dioxide 26 mmol/L 22-32 Anion Gap 6 mmol/L 2-11 Glucose 162 mg/dL High 70-100 Blood Urea Nitrogen 13 mg/dL 6-24 Creatinine 0.75 mg/dL 0.67-1.17 BUN/Creatinine Ratio 17.3 8-20 Calcium 9.2 mg/dL 8.6-10.3 Egfr Non- 108.5 >60 Egfr 139.6 >60 99 Liver Function 12/02/2013 [facility] Total Protein 6.6 g/dL 6.4-8.9 Panel [phone] Albumin 4.1 g/dL 3.2-5.2 Globulin 2.5 g/dL 2-4 Albumin/Globulin Ratio 1.6 1-3 Total Bilirubin 0.40 mg/dL 0.2-1.0 Direct Bilirubin 0.10 mg/dL 0.03-0.18 Indirect Bilirubin 0.3 mg/dL 0.3-1.0 Alkaline Phosphatase 56 U/L 34-104 Alt 14 U/L 7-52 Ast 13 U/L 13-39 Laboratory test 12/02/2013 [facility] Hemoglobin A1c 7.6 % High Less 100 finding [phone] than 6.0 Lipid Profile 12/02/2013 [facility] Triglycerides 720 101 (Trig/Chol/HDL) [phone] mg/dL Cholesterol 167 mg/dL 102 HDL Cholesterol 27.5 mg/dL 103 LDL Cholesterol (SEE NOTE) mg/dL 104 CBC Auto Diff 11/07/2013 [facility] White Blood 6.9 10^3/uL 4.8-10.8 [phone] Count Red Blood Count 4.52 10^6/uL 4.0-5.4 Hemoglobin 14.1 g/dL 14.0-18.0 Hematocrit 39 % Low 42-52 Mean Corpuscular Volume 87 fL 80-94 Mean Corpuscular Hemoglobin 31 pg 27-31 Mean Corpuscular HGB Conc 36 g/dL 31-36 Red Cell Distribution Width 14 % 10.5-15 Platelet Count 215 10^3/uL 150-450 Mean Platelet Volume 7 um3 Low 7.4-10.4 Abs Neutrophils 4.4 10^3/uL 1.5-7.7 Abs Lymphocytes 1.6 10^3/uL 1.0-4.8 Abs Monocytes 0.8 10^3/uL 0-0.8 Abs Eosinophils 0.2 10^3/uL 0-0.6 Abs Basophils 0 10^3/uL 0-0.2 Abs Nucleated RBC 0.01 10^3/uL Granulocyte % 62.8 % 38-83 Lymphocyte % 23.0 % Low 25-47 Monocyte % 11.0 % High 1-9 Eosinophil % 2.5 % 0-6 Basophil % 0.7 % 0-2 Nucleated Red Blood Cells % 0.1 Comp Metabolic 11/07/2013 [facility] Sodium 132 mmol/ L Low 133-145 Panel [phone] Potassium 4.1 mmol/L 3.7-5.6 Chloride 98 mmol/L Low 101-111 Co2 Carbon Dioxide 29 mmol/L 22-32 Anion Gap 5 mmol/L 2-11 Glucose 90 mg/dL 70-100 Blood Urea Nitrogen 13 mg/dL 6-24 Creatinine 0.74 mg/dL 0.67-1.17 BUN/Creatinine Ratio 17.6 8-20 Calcium 8.7 mg/dL 8.6-10.3 Total Protein 6.0 g/dL Low 6.4-8.9 Albumin 3.8 g/dL 3.2-5.2 Globulin 2.2 g/dL 2-4 Albumin/Globulin Ratio 1.7 1-3 Total Bilirubin 0.50 mg/dL 0.2-1.0 Alkaline Phosphatase 49 U/L 34-104 Alt 11 U/L 7-52 Ast 14 U/L 13-39 Egfr Non- 110.2 >60 Egfr 141.8 >60 105 Laboratory test 11/07/2013 [facility] Lactic Acid 0.8 mmol/L 0.5-2.2 finding [phone] Laboratory test 11/07/2013 [facility] C Reactive 54.16 mg/L High < 5.00 106 finding [phone] Protein Liver Function 07/11/2013 [facility] Total Protein 6.3 g/dL 6.2-8.1 Panel [phone] Albumin 4.2 g/dL 3.6-5.4 Globulin 2.1 g/dL 2-4 Albumin/Globulin Ratio 2.0 1-3 Total Bilirubin 0.6 mg/dL 0.4-1.5 Direct Bilirubin 0.1 mg/dL 0.1-0.5 Indirect Bilirubin 0.5 mg/dL 0.3-1.0 Alkaline Phosphatase 44 U/L 30-110 Alt 20 U/L 14-54 Ast 18 U/L 12-42 Laboratory test 07/11/2013 [facility] Amylase 57 U/L 20-120 finding [phone] Lipase 101 U/L High 22-51 Basic Metabolic 07/11/2013 [facility] Sodium 135 mmol /L 133-145 Panel [phone] Potassium 4.3 mmol/L 3.5-5.0 Chloride 100 mmol/L Low 101-111 Co2 Carbon Dioxide 27.0 mmol/L 22-32 Anion Gap 8.0 mmol/L 2-11 Glucose 135 mg/dL High 70-100 Blood Urea Nitrogen 13 mg/dL 6-24 Creatinine 0.70 mg/dL 0.50-1.40 BUN/Creatinine Ratio 18.6 8-20 Calcium 9.7 mg/dL 8.1-9.9 Egfr Non- 117.5 >60 Egfr 151.1 >60 107 CBC With 07/11/2013 [facility] White Blood 7.4 10^3/ uL 4.8-10.8 Manual Diff [phone] Count Red Blood Count 4.71 10^6/uL 4.0-5.4 Hemoglobin 14.4 g/dL 14.0-18.0 Hematocrit 42 % 42-52 Mean Corpuscular Volume 90 fL 80-94 Mean Corpuscular Hemoglobin 31 pg 27-31 Mean Corpuscular HGB Conc 34 g/dL 31-36 Red Cell Distribution Width 14 % 10.5-15 Platelet Count 224 10^3/uL 150-450 Mean Platelet Volume 8 um3 7.4-10.4 Abs Neutrophils 4.8 10^3/uL 1.5-7.7 Abs Lymphocytes 1.8 10^3/uL 1.0-4.8 Abs Monocytes 0.5 10^3/uL 0-0.8 Abs Eosinophils 0.3 10^3/uL 0-0.6 Abs Basophils 0 10^3/uL 0-0.2 Abs Nucleated RBC 0 10^3/uL Neutrophil % 65 % 38-83 Lymphocytes % 27 % 25-47 Monocytes % 3 % 0-13 Eosinophils % 4 % 0-6 Reactive Lymph % 1 % 0-6 RBC Morphology Normal Normal Urine Microalbumin 04/25/2013 [facility] Ur Microalbumin 29.0 mg/L 108 Random [phone] (mg/L) Urine Creatinine 82.6 mg/dL Urine Microalbumin/Creatinine 35.1 High Less Than 31 Laboratory test 04/25/2013 [facility] Hemoglobin A1c 8.9 % High Less 109 finding [phone] than 6.0 Lipid Profile 04/25/2013 [facility] Triglycerides 878 High 40-200 (Trig/Chol/HDL) [phone] mg/dL Cholesterol 178 mg/dL Less than 200 HDL Cholesterol 34 mg/dL Low 40-60 110 Cholesterol/HDL Ratio 5.2 Average High 1-4.44 LDL Cholesterol (SEE NOTE) Less Than 100 111 Liver Function 04/25/2013 [facility] Total Protein 5.7 g/dL Low 6.2-8.1 Panel [phone] Albumin 3.9 g/dL 3.6-5.4 Globulin 1.8 g/dL Low 2-4 Albumin/Globulin Ratio 2.2 1-3 Total Bilirubin 0.3 mg/dL Low 0.4-1.5 Direct Bilirubin < 0.1 mg/dL Low 0.1-0.5 Indirect Bilirubin (SEE NOTE) mg/dL 0.3-1.0 112 Alkaline Phosphatase 51 U/L 30-110 Alt 21 U/L 14-54 Ast 20 U/L 12-42 Laboratory test 04/25/2013 [facility] LDL Cholesterol 60 Less Than finding [phone] Direct 100 Urine DIP 04/25/2013 In House Lab Leukocytes NEG Neg (607)- - Urine Nitrites NEG Neg Urine pH 5 5-6 Total Protein, Urine NEG Neg Urine Glucose 250+ High Norm Urine Ketones NEG Neg Urobilinogen NORM Norm Urine Bilirubin NEG Neg Urine Blood NEG Neg Specific [place] 1.020 1.01-1.02 Wound 03/03/2013 [facility] Wound/Misc (SEE 113 Culture/Sensi [phone] Culture-Gram NOTE) Stain Laboratory test 02/24/2013 [facility] Hemoglobin A1c 9.6 % High Less 114 finding [phone] than 6.0 Lipid Profile 02/24/2013 [facility] Triglycerides 479 High 40-200 (Trig/Chol/HDL) [phone] mg/dL Cholesterol 156 mg/dL Less than 200 HDL Cholesterol 35 mg/dL Low 40-60 115 Cholesterol/HDL Ratio 4.5 Average High 1-4.44 LDL Cholesterol (SEE NOTE) Less Than 100 116 Liver Function 02/24/2013 [facility] Total Protein 6.0 g/dL Low 6.2-8.1 Panel [phone] Albumin 3.9 g/dL 3.6-5.4 Globulin 2.1 g/dL 2-4 Albumin/Globulin Ratio 1.9 1-3 Total Bilirubin 0.5 mg/dL 0.4-1.5 Direct Bilirubin 0.1 mg/dL 0.1-0.5 Indirect Bilirubin 0.4 mg/dL 0.3-1.0 Alkaline Phosphatase 50 U/L 30-110 Alt 23 U/L 14-54 Ast 21 U/L 12-42 Surgical 09/03/2012 [facility] S RUN DATE: 117 Pathology [phone] 09/06/ <SEE NOTE> Laboratory 08/27/2012 [facility] Hemoglobin A1c 9.6 % High Less 118 test finding [phone] than 6.0 Lipid Profile 08/27/2012 [facility] Triglycerides 841 mg/dL High 40-200 (Trig/Chol/HDL [phone] ) Cholesterol 173 mg/dL Less than 200 HDL Cholesterol 35 mg/dL Low 40-60 119 Cholesterol/HDL Ratio 4.9 Average High 1-4.44 LDL Cholesterol (SEE NOTE) mg/dL Less Than 100 120 Liver Function 08/27/2012 [facility] Total Protein 5.9 g/dL Low 6.2-8.1 Panel [phone] Albumin 3.8 g/dL 3.6-5.4 Globulin 2.1 g/dL 2-4 Albumin/Globulin Ratio 1.8 1-3 Total Bilirubin 0.5 mg/dL 0.4-1.5 Direct Bilirubin 0 mg/dL Low 0.1-0.5 Indirect Bilirubin (SEE NOTE) mg/dL 0.3-1.0 121 Alkaline Phosphatase 53 U/L 30-110 Alt 25 U/L 14-54 Ast 18 U/L 12-42 Urine DIP 05/07/2012 In House Lab Leukocytes neg Neg ([phone] - Urine Nitrites neg Neg Urine pH 5 5-6 Total Protein, Urine neg Neg Urine Glucose 250 High Norm Urine Ketones neg Neg Urobilinogen norm Norm Urine Bilirubin neg Neg Urine Blood neg Neg Specific [place] na Low 1.01-1.02 Urine Microalbumin 05/07/2012 [facility] Microalbumin 21.0 mg/L Random [phone] (MG/L) Urine Creatinine 63.2 mg/dL [place] Alb/Creatinine Ratio 33.2 UG/MG High Less Than 30 122 CBC Auto Diff 05/07/2012 [facility] White Blood 5.6 CUMM 4.8-10.8 [phone] Count Red Cell Count 4.49 CUMM Low 4.6-6.2 Hemoglobin 14.2 g/dL 14.0-18.0 Hematocrit 41 % Low 42-52 Mean Corpuscular Volume 91 um3 80-94 Mean Corpuscular Hemoglob 32 pg High 27-31 Mean Corpuscular HGB [place] 35 g/dL 32-36 [place] Distribution WDTH 14 % 10.5-15 Platelet Count 178 CUMM 150-450 Mean Platelet Volume 8.7 um3 7.4-10.4 Gran % 60.9 % 38-83 Lymph % 28.0 % 20-45 Mononuclear % 6.2 % 1-9 Eosinophil % 4.3 % 0-6 Basophil % 0.6 % 0-2 Abs Lymphs 1.6 1.0-4.8 Abs Mononuclear 0.3 0-0.8 Absolute Neutrophil Count 3.4 1.5-7.7 Abs Eosinophils 0.2 0-0.6 Abs Basophils 0 0-0.2 Basic Metabolic 05/07/2012 [facility] Sodium 137 mmol /L 135-145 Panel [phone] Potassium 4.2 mmol/L 3.5-5.0 Chloride 103 mmol/L 101-111 Co2 (Carbon Dioxide) 25.0 mmol/L 22-32 Anion Gap 9.0 mmol/L 2-11 123 Glucose 246 mg/dL High 70-100 BUN 13 mg/dL 6-24 Creatinine 0.7 mg/dL 0.50-1.40 One Over Creatinine 1.42 BUN/Creatinine Ratio 18.6 8-20 Calcium 9.1 mg/dL 8.1-9.9 eGFR Non- 118.0 > 60 eGFR 151.7 > 60 124 Liver Function 05/07/2012 [facility] Total Protein 6.2 GM/DL 6.2-8.1 Panel [phone] Albumin 3.8 GM/DL 3.6-5.4 Globulin 2.4 GM/DL 2-4 Albumin/Globulin Ratio 1.6 1-3 Bilirubin Total 0.7 mg/dL 0.4-1.5 125 Bilirubin Direct 0.1 mg/dL 0.1-0.5 Indirect Bilirubin 0.6 mg/dL 0.3-1.0 126 Alkaline Phosphatase 58 U/L 39-117 Alt (SGPT) 25 U/L 17-63 Ast (Sgot) 22 U/L 12-42 Lipid Profile 05/07/2012 [facility] Triglyceride 883 mg/dL High 40-200 (Trig/Chol/HDL) [phone] Cholesterol 201 mg/dL High Less Than 200 127 High Density Lipoprotein 37 mg/dL Low 40-60 128 Cholesterol/HDL Ratio 5.43 AVERAGE High 1-4.97 Low Density Lipoprotein (SEE NOTE) mg/dL Less Than 100 129 Laboratory test 05/07/2012 [facility] Hemoglobin A1c 9.0 % High Less Than 130 finding [phone] 6.0 TSH 1.21 MIU/ML 0.34-5.60 1 Because ethnic data is not always readily available, this report includes an eGFR for both -Americans and non- Americans. The National Kidney Disease Education Program (NKDEP) does not endorse the use of the MDRD equation for patients that are not between the ages of 18 and 70, are , have extremes of body size, muscle mass, or nutritional status, or are non- or non-. According to the National Kidney Foundation, irrespective of diagnosis, the stage of the disease is based on the level of kidney function: Stage Description GFR(mL/min/1.73 m(2)) 1 Kidney damage with normal or decreased GFR 90 2 Kidney damage with mild decrease in GFR 60-89 3 Moderate decrease in GFR 30-59 4 Severe decrease in GFR 15-29 5 Kidney failure <15 (or dialysis) 2 Serum levels of PSA measured using the Clair enGene DXI Hybritech immunoassay should not be interpreted as absolute evidence of the presence or absence of disease. The PSA value should be used in conjunction with other pertinent clinical diagnostic procedures. The values obtained with different assay methods or kits cannot be used interchangeably. 3 Therapeutic target for the treatment of diabetes mellitus patients is <7% HBA1C, and in selective patients <6.0%. Please refer to [place] Diabetes Association diabetic care guidelines for further information. 4 Because ethnic data is not always readily available, this report includes an eGFR for both -Americans and non- Americans. The National Kidney Disease Education Program (NKDEP) does not endorse the use of the MDRD equation for patients that are not between the ages of 18 and 70, are , have extremes of body size, muscle mass, or nutritional status, or are non- or non-. According to the National Kidney Foundation, irrespective of diagnosis, the stage of the disease is based on the level of kidney function: Stage Description GFR(mL/min/1.73 m(2)) 1 Kidney damage with normal or decreased GFR 90 2 Kidney damage with mild decrease in GFR 60-89 3 Moderate decrease in GFR 30-59 4 Severe decrease in GFR 15-29 5 Kidney failure <15 (or dialysis) 5 Desirable: <150 Borderline High: 150-199 High: 200-499 Very High: >500 6 Desirable: <200 Borderline High: 200-239 High: >239 7 Low: <40 Desirable: 40-60 High: >60 8 Desirable: <100 Near Optimal: 100-129 Borderline High: 130-159 High: 160-189 Very High: >189 9 [id number] 10 SEE RESULT BELOW Name: MOLINA AGUAYO : [address]: Maryjane Luu MD Acct: [id number] Unit: [id number] AGE: 57 Location: [facility] [place] Re09/09/17 SEX: M Status: DEP ER SPEC: [id number] NELIDA: 09/09/17-[address] [facility] [address]: Yves KANG REQ: [id number] RECD: 09/09/17 STATUS: DOUGLAS GUIDRY DR: Kerri [employer]icians Rani Lim HOSTING ENGINEER _ SOURCE: [facility] SPDESC: ORDERED: Culture Stain COMMENTS: [id number] Procedure Result Reported Site Wound/Misc Gram Stain Final 09/09/17- 3456 ML 4+ Neutrophils 1+ Epithelial Cells 2+ Gram Positive Cocci Wound/Misc Culture PENDING * ML - MAIN LAB ([facility]) . END OF REPORT * ML=Testing performed at Main Lab DEPARTMENT OF PATHOLOGY, [address] [place] [address] Canelo George M.D. Director [facility] # [id number] 11 SEE RESULT BELOW Name: MOLINA AGUAYO : [address]: Maryjane Luu MD Acct: [id number] Unit: [id number] AGE: 57 Location: [facility] [place] Re09/09/17 SEX: M Status: DEP ER SPEC: [id number] NELIDA: 09/09/17-[address] [facility] [address]: Yves KANG REQ: [id number] RECD: 09/09/178001 STATUS: WILLOW GUIDRY DR: Kerri Physicians Rani Lim HOSTING ENGINEER _ SOURCE: [place] SPDESC: ORDERED: MRSA/SA SSTI, Culture Stain COMMENTS: [id number] Procedure Result Reported Site MRSA/S. aureus SSTI PCR Final 09/09/17- 1910 ML Organism 1 MRSA NEGATIVE Organism 2 S.AUREUS NEGATIVE Wound/Misc Gram Stain Final 09/09/17- 6 ML 4+ Neutrophils 1+ Epithelial Cells 2+ Gram Positive Cocci Wound/Misc Culture Final 09/11/17- 1131 ML Organism 1 NORMAL RONNY Quantity 1+ * ML - MAIN LAB ([facility]) . END OF REPORT * ML=Testing performed at Main Lab DEPARTMENT OF PATHOLOGY, [address] [place] [address] Canelo George M.D. Director [facility] # [id number] 12 Desirable: <150 Borderline High: 150-199 High: 200-499 Very High: >500 13 Desirable: <200 Borderline High: 200-239 High: >239 14 Low: <40 Desirable: 40-60 High: >60 15 Desirable: <100 Near Optimal: 100-129 Borderline High: 130-159 High: 160-189 Very High: >189 16 Therapeutic target for the treatment of diabetes mellitus patients is <7% HBA1C, and in selective patients <6.0%. Please refer to [place] Diabetes Association diabetic care guidelines for further information. 17 Because ethnic data is not always readily available, this report includes an eGFR for both -Americans and non- Americans. The National Kidney Disease Education Program (NKDEP) does not endorse the use of the MDRD equation for patients that are not between the ages of 18 and 70, are , have extremes of body size, muscle mass, or nutritional status, or are non- or non-. According to the National Kidney Foundation, irrespective of diagnosis, the stage of the disease is based on the level of kidney function: Stage Description GFR(mL/min/1.73 m(2)) 1 Kidney damage with normal or decreased GFR 90 2 Kidney damage with mild decrease in GFR 60-89 3 Moderate decrease in GFR 30-59 4 Severe decrease in GFR 15-29 5 Kidney failure <15 (or dialysis) 18 Because ethnic data is not always readily available, this report includes an eGFR for both -Americans and non- Americans. The National Kidney Disease Education Program (NKDEP) does not endorse the use of the MDRD equation for patients that are not between the ages of 18 and 70, are , have extremes of body size, muscle mass, or nutritional status, or are non- or non-. According to the National Kidney Foundation, irrespective of diagnosis, the stage of the disease is based on the level of kidney function: Stage Description GFR(mL/min/1.73 m(2)) 1 Kidney damage with normal or decreased GFR 90 2 Kidney damage with mild decrease in GFR 60-89 3 Moderate decrease in GFR 30-59 4 Severe decrease in GFR 15-29 5 Kidney failure <15 (or dialysis) 19 Serum levels of PSA measured using the Point[employer] DXI Hybritech immunoassay should not be interpreted as absolute evidence of the presence or absence of disease. The PSA value should be used in conjunction with other pertinent clinical diagnostic procedures. The values obtained with different assay methods or kits cannot be used interchangeably. 20 Desirable: <100 Near Optimal: 100-129 Borderline High: 130-159 High: 160-189 Very High: >189 21 Desirable: <150 Borderline High: 150-199 High: 200-499 Very High: >500 22 Desirable: <200 Borderline High: 200-239 High: >239 23 Low: <40 Desirable: 40-60 High: >60 24 Unable to calculate LDL as triglyceride is > 400 25 Because ethnic data is not always readily available, this report includes an eGFR for both -Americans and non- Americans. The National Kidney Disease Education Program (NKDEP) does not endorse the use of the MDRD equation for patients that are not between the ages of 18 and 70, are , have extremes of body size, muscle mass, or nutritional status, or are non- or non-. According to the National Kidney Foundation, irrespective of diagnosis, the stage of the disease is based on the level of kidney function: Stage Description GFR(mL/min/1.73 m(2)) 1 Kidney damage with normal or decreased GFR 90 2 Kidney damage with mild decrease in GFR 60-89 3 Moderate decrease in GFR 30-59 4 Severe decrease in GFR 15-29 5 Kidney failure <15 (or dialysis) 26 Therapeutic target for the treatment of diabetes mellitus patients is <7% HBA1C, and in selective patients <6.0%. Please refer to [place] Diabetes Association diabetic care guidelines for further information. 27 Serum levels of PSA measured using the Clair Navid DXI Hybritech immunoassay should not be interpreted as absolute evidence of the presence or absence of disease. The PSA value should be used in conjunction with other pertinent clinical diagnostic procedures. The values obtained with different assay methods or kits cannot be used interchangeably. 28 Desirable <150 Borderline high 150-199 High 200-499 Very High >500 29 Desirable <200 Borderline high 200-239 High >239 30 Low <40 Desirable: 40-60 High: >60 31 Desirable: <100 mg/dL Near Optimal: 100-129 mg/dL Borderline High: 130-159 mg/dL High: 160-189 mg/dL Very High: >189 mg/dL 32 Therapeutic target for the treatment of diabetes Mellitus patients is <7% HBA1C, and in selective patients <6.0%.Please refer to [place] Diabetes Association Diabetic care guidelines for further information. 33 Because ethnic data is not always readily available, this report includes an eGFR for both -Americans and non- Americans. The National Kidney Disease Education Program (NKDEP) does not endorse the use of the MDRD equation for patients that are not between the ages of 18 and 70, are , have extremes of body size, muscle mass, or nutritional status, or are non- or non-. According to the National Kidney Foundation, irrespective of diagnosis, the stage of the disease is based on the level of kidney function: Stage Description GFR(mL/min/1.73 m(2)) 1 Kidney damage with normal or decreased GFR 90 2 Kidney damage with mild decrease in GFR 60-89 3 Moderate decrease in GFR 30-59 4 Severe decrease in GFR 15-29 5 Kidney failure <15 (or dialysis) 34 Because ethnic data is not always readily available, this report includes an eGFR for both -Americans and non- Americans. The National Kidney Disease Education Program (NKDEP) does not endorse the use of the MDRD equation for patients that are not between the ages of 18 and 70, are , have extremes of body size, muscle mass, or nutritional status, or are non- or non-. According to the National Kidney Foundation, irrespective of diagnosis, the stage of the disease is based on the level of kidney function: Stage Description GFR(mL/min/1.73 m(2)) 1 Kidney damage with normal or decreased GFR 90 2 Kidney damage with mild decrease in GFR 60-89 3 Moderate decrease in GFR 30-59 4 Severe decrease in GFR 15-29 5 Kidney failure <15 (or dialysis) 35 Therapeutic target for the treatment of diabetes Mellitus patients is <7% HBA1C, and in selective patients <6.0%.Please refer to [place] Diabetes Association Diabetic care guidelines for further information. 36 Desirable <150 Borderline high 150-199 High 200-499 Very High >500 37 Desirable <200 Borderline high 200-239 High >239 38 Low <40 Desirable: 40-60 High: >60 39 Desirable: <100 mg/dL Near Optimal: 100-129 mg/dL Borderline High: 130-159 mg/dL High: 160-189 mg/dL Very High: >189 mg/dL 40 Loom Operator: [id number] NEREYDA Magallon 41 Loom Operator: [id number] MARIELOSMARGAUX MENENDEZ 42 Loom Operator: [id number] KYLE SANCHEZ 43 Because ethnic data is not always readily available, this report includes an eGFR for both -Americans and non- Americans. The National Kidney Disease Education Program (NKDEP) does not endorse the use of the MDRD equation for patients that are not between the ages of 18 and 70, are , have extremes of body size, muscle mass, or nutritional status, or are non- or non-. According to the National Kidney Foundation, irrespective of diagnosis, the stage of the disease is based on the level of kidney function: Stage Description GFR(mL/min/1.73 m(2)) 1 Kidney damage with normal or decreased GFR 90 2 Kidney damage with mild decrease in GFR 60-89 3 Moderate decrease in GFR 30-59 4 Severe decrease in GFR 15-29 5 Kidney failure <15 (or dialysis) 44 AM 8.7-22.4 PM <10 45 FASTING 12 HOUR 46 FASTING 12 HOUR 47 FASTING 12 HOUR 48 Normal Range 180 to 914 Indeterminate Range 145 to 180 Deficient Range <145 49 FASTING 12 HOUR 50 ADDITIONAL INFORMATION This test was developed and its performance characteristics determined by [facility] in a manner consistent with CLIA requirements. This test has not been cleared or approved by the U.S. Food and Drug Administration. Test Performed by: [facility] [place] [address] Turpentine Farmer: Fredis Zarate II, M.D., Ph.D. 51 ADDITIONAL INFORMATION This test was developed and its performance characteristics determined by [facility] in a manner consistent with CLIA requirements. This test has not been cleared or approved by the U.S. Food and Drug Administration. Test Performed by: [facility] [address] Turpentine Farmer: Fredis Zarate II, M.D., Ph.D. 52 Loom Operator: [id number] Hamzah Kang 53 Because ethnic data is not always readily available, this report includes an eGFR for both -Americans and non- Americans. The National Kidney Disease Education Program (NKDEP) does not endorse the use of the MDRD equation for patients that are not between the ages of 18 and 70, are , have extremes of body size, muscle mass, or nutritional status, or are non- or non-. According to the National Kidney Foundation, irrespective of diagnosis, the stage of the disease is based on the level of kidney function: Stage Description GFR(mL/min/1.73 m(2)) 1 Kidney damage with normal or decreased GFR 90 2 Kidney damage with mild decrease in GFR 60-89 3 Moderate decrease in GFR 30-59 4 Severe decrease in GFR 15-29 5 Kidney failure <15 (or dialysis) 54 [id number] 55 Therapeutic target for the treatment of diabetes Mellitus patients is <7% HBA1C, and in selective patients <6.0%.Please refer to [place] Diabetes Association Diabetic care guidelines for further information. 56 [id number] 57 Because ethnic data is not always readily available, this report includes an eGFR for both -Americans and non- Americans. The National Kidney Disease Education Program (NKDEP) does not endorse the use of the MDRD equation for patients that are not between the ages of 18 and 70, are , have extremes of body size, muscle mass, or nutritional status, or are non- or non-. According to the National Kidney Foundation, irrespective of diagnosis, the stage of the disease is based on the level of kidney function: Stage Description GFR(mL/min/1.73 m(2)) 1 Kidney damage with normal or decreased GFR 90 2 Kidney damage with mild decrease in GFR 60-89 3 Moderate decrease in GFR 30-59 4 Severe decrease in GFR 15-29 5 Kidney failure <15 (or dialysis) 58 Desirable <150 Borderline high 150-199 High 200-499 Very High >500 59 Desirable <200 Borderline high 200-239 High >239 60 Low <40 Desirable: 40-60 High: >60 61 Desirable: <100 mg/dL Near Optimal: 100-129 mg/dL Borderline High: 130-159 mg/dL High: 160-189 mg/dL Very High: >189 mg/dL 62 Because ethnic data is not always readily available, this report includes an eGFR for both -Americans and non- Americans. The National Kidney Disease Education Program (NKDEP) does not endorse the use of the MDRD equation for patients that are not between the ages of 18 and 70, are , have extremes of body size, muscle mass, or nutritional status, or are non- or non-. According to the National Kidney Foundation, irrespective of diagnosis, the stage of the disease is based on the level of kidney function: Stage Description GFR(mL/min/1.73 m(2)) 1 Kidney damage with normal or decreased GFR 90 2 Kidney damage with mild decrease in GFR 60-89 3 Moderate decrease in GFR 30-59 4 Severe decrease in GFR 15-29 5 Kidney failure <15 (or dialysis) 63 Acute inflammation: >10.00 64 [place] Severe Sepsis and Septic Shock Management Bundle Measure requires all lactic acids initially measuring >2.0 mmol/L be repeated. 65 PT IS FASTING 66 Because ethnic data is not always readily available, this report includes an eGFR for both -Americans and non- Americans. The National Kidney Disease Education Program (NKDEP) does not endorse the use of the MDRD equation for patients that are not between the ages of 18 and 70, are , have extremes of body size, muscle mass, or nutritional status, or are non- or non-. According to the National Kidney Foundation, irrespective of diagnosis, the stage of the disease is based on the level of kidney function: Stage Description GFR(mL/min/1.73 m(2)) 1 Kidney damage with normal or decreased GFR 90 2 Kidney damage with mild decrease in GFR 60-89 3 Moderate decrease in GFR 30-59 4 Severe decrease in GFR 15-29 5 Kidney failure <15 (or dialysis) 67 Therapeutic target for the treatment of diabetes Mellitus patients is <7% HBA1C, and in selective patients <6.0%.Please refer to [place] Diabetes Association Diabetic care guidelines for further information. 68 Desirable <150 Borderline high 150-199 High 200-499 Very High >500 69 Desirable <200 Borderline high 200-239 High >239 70 Low <40 Desirable: 40-60 High: >60 71 Desirable: <100 mg/dL Near Optimal: 100-129 mg/dL Borderline High: 130-159 mg/dL High: 160-189 mg/dL Very High: >189 mg/dL 72 LESION ON ABDOMEN 73 ADDITIONAL INFORMATION Analyte Specific Reagent: This test was developed and its performance characteristics determined by [facility]. It has not been cleared or approved by the U.S. Food and Drug Administration. 74 LESION ON ABDOMEN 75 ADDITIONAL INFORMATION Laboratory developed test. Test Performed by: [facility] - [address] [address] Turpentine Farmer: Fredis Zarate II, M.D., Ph.D. 76 Because ethnic data is not always readily available, this report includes an eGFR for both -Americans and non- Americans. The National Kidney Disease Education Program (NKDEP) does not endorse the use of the MDRD equation for patients that are not between the ages of 18 and 70, are , have extremes of body size, muscle mass, or nutritional status, or are non- or non-. According to the National Kidney Foundation, irrespective of diagnosis, the stage of the disease is based on the level of kidney function: Stage Description GFR(mL/min/1.73 m(2)) 1 Kidney damage with normal or decreased GFR 90 2 Kidney damage with mild decrease in GFR 60-89 3 Moderate decrease in GFR 30-59 4 Severe decrease in GFR 15-29 5 Kidney failure <15 (or dialysis) 77 Therapeutic target for the treatment of diabetes Mellitus patients is <7% HBA1C, and in selective patients <6.0%.Please refer to [place] [employer] Association Diabetic care guidelines for further information. 78 Desirable <150 Borderline high 150-199 High 200-499 Very High >500 79 Desirable <200 Borderline high 200-239 High >239 80 Low <40 Desirable: 40-60 High: >60 81 Therapeutic target for the treatment of diabetes Mellitus patients is <7% HBA1C, and in selective patients <6.0%.Please refer to [place] [employer] Association Diabetic care guidelines for further information. 82 Desirable <150 Borderline high 150-199 High 200-499 Very High >500 83 Desirable <200 Borderline high 200-239 High >239 84 Low <40 Desirable: 40-60 High: >60 85 Unable to calculate LDL as triglyceride is > 400 86 Because ethnic data is not always readily available, this report includes an eGFR for both -Americans and non- Americans. The National Kidney Disease Education Program (NKDEP) does not endorse the use of the MDRD equation for patients that are not between the ages of 18 and 70, are , have extremes of body size, muscle mass, or nutritional status, or are non- or non-. According to the National Kidney Foundation, irrespective of diagnosis, the stage of the disease is based on the level of kidney function: Stage Description GFR(mL/min/1.73 m(2)) 1 Kidney damage with normal or decreased GFR 90 2 Kidney damage with mild decrease in GFR 60-89 3 Moderate decrease in GFR 30-59 4 Severe decrease in GFR 15-29 5 Kidney failure <15 (or dialysis) 87 Therapeutic target for the treatment of diabetes Mellitus patients is <7% HBA1C, and in selective patients <6.0%.Please refer to [place] [employer] Association Diabetic care guidelines for further information. 88 RUN DATE: 10/11/14 [facility] LIVE PAGE 1 RUN TIME: [address] [place] [address] Specimen Inquiry Name: MOLINA AGUAYO : [address]: Rani Lim NP Acct: [id number] Unit: [id number] AGE: 54 Location: [facility] Re10/09/14 SEX: M Status: REG REF SPEC: [id number] NELIDA: 10/09/[address]: Rani Lim NP REQ: [id number] RECD: 10/09/14 STATUS: COMP _ SOURCE: THROAT SPDESC: ORDERED: Throat Culture QUERIES: Provider Requisition # [id number] Procedure Result Verified Site Throat Culture Final 10/11/14- 8688 ML Organism 1 NORMAL RONNY Quantity 2+ END OF REPORT * ML=Testing performed at Main Lab DEPARTMENT OF PATHOLOGY, [address] [place] [address] Canelo George M.D. Director [facility] # [id number] 89 Therapeutic target for the treatment of diabetes Mellitus patients is <7% HBA1C, and in selective patients <6.0%.Please refer to [place] [employer] Association Diabetic care guidelines for further information. 90 FASTING 8 HOUR 91 Therapeutic target for the treatment of diabetes Mellitus patients is <7% HBA1C, and in selective patients <6.0%.Please refer to [place] [employer] Association Diabetic care guidelines for further information. 92 Microalbuminuria in a random sample is defined as: Microalbumin/Creatinine ratio of 30-299 ug/mg. 93 Desirable <150 Borderline high 150-199 High 200-499 Very High >500 94 Desirable <200 Borderline high 200-239 High >239 95 Low <40 Desirable: 40-60 High: >60 96 Unable to calculate LDL as triglyceride is > 400 97 Desirable <100 Near Optimal 100-129 Borderline high 130-159 High 160-189 Very High >189 98 FASTING 8 HOUR 99 Because ethnic data is not always readily available, this report includes an eGFR for both -Americans and non- Americans. The National Kidney Disease Education Program (NKDEP) does not endorse the use of the MDRD equation for patients that are not between the ages of 18 and 70, are , have extremes of body size, muscle mass, or nutritional status, or are non- or non-. According to the National Kidney Foundation, irrespective of diagnosis, the stage of the disease is based on the level of kidney function: Stage Description GFR(mL/min/1.73 m(2)) 1 Kidney damage with normal or decreased GFR 90 2 Kidney damage with mild decrease in GFR 60-89 3 Moderate decrease in GFR 30-59 4 Severe decrease in GFR 15-29 5 Kidney failure <15 (or dialysis) 100 Therapeutic target for the treatment of diabetes Mellitus patients is <7% HBA1C, and in selective patients <6.0%.Please refer to [place] Diabetes Association Diabetic care guidelines for further information. 101 Desirable <150 Borderline high 150-199 High 200-499 Very High >500 102 Desirable <200 Borderline high 200-239 High >239 103 Low <40 Desirable: 40-60 High: >60 104 Unable to calculate LDL as triglyceride is > 400 105 Because ethnic data is not always readily available, this report includes an eGFR for both -Americans and non- Americans. The National Kidney Disease Education Program (NKDEP) does not endorse the use of the MDRD equation for patients that are not between the ages of 18 and 70, are , have extremes of body size, muscle mass, or nutritional status, or are non- or non-. According to the National Kidney Foundation, irrespective of diagnosis, the stage of the disease is based on the level of kidney function: Stage Description GFR(mL/min/1.73 m(2)) 1 Kidney damage with normal or decreased GFR 90 2 Kidney damage with mild decrease in GFR 60-89 3 Moderate decrease in GFR 30-59 4 Severe decrease in GFR 15-29 5 Kidney failure <15 (or dialysis) 106 Acute inflammation: >10.00 In accordance with FDA guideline, CRP is now reported in mg/L, previous reporting was in mg/dL. 107 Because ethnic data is not always readily available, this report includes an eGFR for both -Americans and non- Americans. The National Kidney Disease Education Program (NKDEP) does not endorse the use of the MDRD equation for patients that are not between the ages of 18 and 70, are , have extremes of body size, muscle mass, or nutritional status, or are non- or non-. According to the National Kidney Foundation, irrespective of diagnosis, the stage of the disease is based on the level of kidney function: Stage Description GFR(mL/min/1.73 m(2)) 1 Kidney damage with normal or decreased GFR 90 2 Kidney damage with mild decrease in GFR 60-89 3 Moderate decrease in GFR 30-59 4 Severe decrease in GFR 15-29 5 Kidney failure <15 (or dialysis) 108 Microalbuminuria in a random sample is defined as: Microalbumin/Creatinine ratio of 30-299 ug/mg. 109 Therapeutic target for the treatment of diabetes Mellitus patients is <7% HBA1C, and in selective patients <6.0%.Please refer to [place] [employer] Association Diabetic care guidelines for further information. 110 HDL Interpretation: Undesirable: High Risk: Less than 40 mg/dL Desirable: Low Risk: Greater than 60 mg/dL 111 Unable to calculate LDL as triglyceride is > 400 112 Unable to calculate Ind Bili as D Bili is <0.1 Unable to calculate Ind Bili as D Bili is <0.1 113 RUN DATE: 03/06/13 [facility] LAB LIVE PAGE 1 RUN TIME: 1311 [address] [facility], [place], [place] [address] Specimen Inquiry Name: MOLINA AGUAYO Bharti : [address]: Desiree Lutz MD Acct: [id number] Unit: [id number] AGE: 52 Location: [facility] Re03/03/13 SEX: M Status: REG REF SPEC: [id number] NELIDA: 03/03/13-[address]: Desiree Lutz MD REQ: [id number] RECD: 03/03/13362 STATUS: COMP _ SOURCE: WOUND SPDESC:NOS ORDERED: Culture Stain QUERIES: Medent Number [id number] Specimen Description MID BACK Procedure Result Verified Site Wound/Misc Gram Stain Final 03/04/13- 0827 ML 1+ Epithelial Cells 2+ Polys 3+ Gram Positive Cocci 3+ Gram Positive Bacilli Wound/Misc Culture Final 03/06/13- 1311 ML Organism 1 NORMAL RONNY Quantity 2+ END OF REPORT * ML=Testing performed at Main Lab DEPARTMENT OF PATHOLOGY, [facility] [address] [place], [place] [address] Canelo George M.D. Director [facility] Permit #[id number] 114 Therapeutic target for the treatment of diabetes Mellitus patients is <7% HBA1C, and in selective patients <6.0%.Please refer to [place] [employer] Association Diabetic care guidelines for further information. 115 HDL Interpretation: Undesirable: High Risk: Less than 40 mg/dL Desirable: Low Risk: Greater than 60 mg/dL 116 Unable to calculate LDL as triglyceride is > 400 117 RUN DATE: 09/06/12 [facility] LAB LIVE PAGE 1 RUN TIME: [address] [place] [id number] Specimen Inquiry Name: MOLINA AGUAYO : [address]: Addi Rosado MD Acct: [id number] Unit: [id number] AGE: 52 Location: ENDO Re09/03/12 SEX: M Status: REG REF SPEC: [id number] NELIDA: 09/03/12- SUBM DR: Addi Rosado MD REQ: [id number] RECD: 09/03/12 STATUS: CANDY GUIDRY DR: Desiree Lutz MD _ ORDERED: LEVEL IV/2 FINAL DIAGNOSIS 1. Colon, 35 cm., biopsy: Hyperplastic polyp. 2. Colon, 45 cm., biopsy: A. Tubular adenoma. B. No high grade dysplasia or malignancy. CLINICAL HISTORY History of polyps. POST-OPERATIVE DIAGNOSIS To ascending - 2 polyps, super morbid obese; tics GROSS DESCRIPTION 1. The specimen is received in formalin labelled Molina Aguayo, Biopsy Colon Polyp at 35 cm., and consists of a soft tissue measuring 0.5 x 0.5 x 0.2 cm. in aggregate. Submitted entirely, one cassette labelled 1. 2. The specimen is received in formalin labelled Molina Aguayo, Colon Polyp at 45 cm., and consists of a reynoso, soft tissue fragment measuring 0.3 x 0.4 x 0.2 cm. Submitted entirely, one cassette labelled 2. Signed (signature on file) Canelo George MD 1603 END OF REPORT * ML=Testing performed at Main Lab DEPARTMENT OF PATHOLOGY, [address] [place] [address] Canelo George M.D. Director [facility] Permit #[id number] 118 Therapeutic target for the treatment of diabetes Mellitus patients is <7% HBA1C, and in selective patients <6.0%.Please refer to [place] [employer] Association Diabetic care guidelines for further information. 119 HDL Interpretation: Undesirable: High Risk: Less than 40 MG/DL Desirable: Low Risk: Greater than 60 MG/DL 120 Unable to calculate LDL as triglyceride is > 400 121 UNABLE TO CALCULATE IND.BILI D.BILI IS <0.1 122 MICROALBUMINURIA IN A RANDOM SAMPLE IS DEFINED : MICROALBUMIN/CREATININE RATIO OF 30-299 ug/mg. . 123 Anion gap measurement may be of limited value in the presence of any alkalosis, especially in a combined acid base disorder. . 124 Because ethnic data is not always readily available, this report includes an eGFR for both -Americans and non- Americans. The National Kidney Disease Education Program (NKDEP) does not endorse the use of the MDRD equation for patients that are not between the ages of 18 and 70, are , have extremes of body size, muscle mass, or nutritional status, or are non- or non-. According to the National Kidney Foundation, irrespective of diagnosis, the stage of the disease is based on the level of kidney function: Stage Description GFR(mL/min/1.73 m(2)) 1 Kidney damage with normal or decreased GFR 90 2 Kidney damage with mild decrease in GFR 60-89 3 Moderate decrease in GFR 30-59 4 Severe decrease in GFR 15-29 5 Kidney failure <15 (or dialysis) 125 A metabolite of Naproxen, O-desmethylnaproxen, has been shown to interfere with the Jendrassik-Ksenia method for measuring total bilirubin. Samples from patients who have taken Naproxen have shown spurious elevation in total bilirubin levels. 126 Please note updated reference range, effective 03/07/10 127 CHOLESTEROL INTERPRETATION: Desirable: Less than 200 MG/DL Borderline-High Risk: 200-239 MG/DL High-Risk: 240 MG/DL and over 128 HDL INTERPRETATION: Undesirable: High Risk: Less than 40 MG/DL Desirable: Low Risk: Greater than 60 MG/DL 129 UNABLE TO CALCULATE LDL TRIGLYCERIDE IS > 400 130 THERAPEUTIC TARGET FOR THE TREATMENT OF DIABETES MELLITUS PATIENTS IS <7% HBA1C, AND IN SELECTIVE PATIENTS <6.0%. PLEASE REFER TO [place] [employer]ATION DIABETIC CARE GUIDELINES FOR FURTHER INFORMATION. Procedures Date Code Description Status 11/25/2013 [id number] Diabetic Retinal Eye Exam Completed 04/25/2013 29122 EKG, at Least 12 Leads w/Interpretation and Report Completed 03/03/2013 36254 I&D Of Abscess Completed 08/17/2012 [id number] Colonoscopy Completed Encounters Type Date Location Provider Dx Diagnosis Office Visit 08/18/2018 Main Office Piero Banda, Z00.00 Encntr for general 2:15p adult medical exam w/o abnormal findings L20.9 Atopic dermatitis, unspecified E11.9 Type 2 diabetes mellitus without complications I10 Essential (primary) hypertension Z23 Encounter for immunization Office Visit 02/12/2018 9:15a Main Office Piero Banda E11.9 Type 2 diabetes MD mellitus without complications E78.2 Mixed hyperlipidemia I10 Essential (primary) hypertension Z11.59 Encounter for screening for other viral diseases Office Visit 09/15/2017 3:15p Main Office Rani Lim, L89.152 Pressure ulcer [employer] TECHNICIAN-C of sacral region, stage 2 Office Visit 07/16/2017 3:45p Main Office Rani Lim, Z00.00 Encntr for [employer] TECHNICIAN-C general adult medical exam w/o abnormal findings E11.9 Type 2 diabetes mellitus without complications E78.2 Mixed hyperlipidemia Z23 Encounter for immunization Office Visit 06/15/2017 1:55p Main Office Sarah Amin01.90 Acute sinusitis, Storm, [employer] TECHNICIAN-C unspecified Office Visit 01/27/2017 4:15p Main Office Rani Lim E11.9 Type 2 diabetes [employer] TE[employer]ICIAN-[employer] mellitus without complications E78.2 Mixed hyperlipidemia R23.8 Other skin changes Office Visit 11/14/2016 4:15p Main Office Piero Banda, S00.459A Superficial MD foreign body of unspecified ear, init encntr R05 Cough R06.2 Wheezing Office Visit 10/22/2016 11:00a Main Office Rani Lim, E11.9 Type 2 diabetes [employer]ICIAN-C mellitus without complications E78.2 Mixed hyperlipidemia Office Visit 08/06/2016 3:00p Main Office Rani Lim, N13.30 Unspecified [employer] TECHNICIAN-C hydronephrosis J06.9 Acute upper respiratory infection, unspecified Office Visit 07/19/2016 9:15a Main Office Kristopher Hurley M.D. 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 N13.30 Unspecified hydronephrosis Office Visit 06/02/2016 1:30p Main Office Rani Lim, Z00.00 Encntr for [employer] TECHNICIAN-C general adult medical exam w/o abnormal findings D64.9 Anemia, unspecified E11.9 Type 2 diabetes mellitus without complications Office Visit 04/28/2016 3:00p Main Office Rani Lim, E11.9 Type 2 diabetes [employer] TECHNICIAN-C mellitus without complications E78.2 Mixed hyperlipidemia I10 Essential (primary) hypertension Office Visit 01/29/2016 9:15a Main Office Rani Lim, K56.69 Other intestinal [employer] TECHNICIAN-C obstruction E11.9 Type 2 diabetes mellitus without complications Office Visit 01/18/2016 3:00p Main Office Piero K59.00 ConstipationSolo MD unspecified Office Visit 10/26/2015 8:45a Main Office Rani Lim, E78.2 Mixed hyperlipidemia [employer] TECHNICIAN-C E11.9 Type 2 diabetes mellitus without complications I10 Essential (primary) hypertension Office Visit 09/10/2015 3:15p Main Office Rani Lim, M54.9 Dorsalgia , [employer] TECHNICIAN-C unspecified Office Visit 08/01/2015 5:00p Main Office Rani Lim, L73.9 Follicular disorder, [employer] TECHNICIAN-C unspecified Office Visit 06/26/2015 9:00a Main Office Rani Lim E78.2 Mixed hyperlipidemia [employer] TECHNICIAN-C E11.9 Type 2 diabetes mellitus without complications Office Visit 03/22/2015 3:45p Main Office Sarah Vanegas 682.2 Cellulitis & Storm, [employer] TECHNICIAN-C Abscess Trunk Office Visit 03/07/2015 9:15a Main Office Rani Lim, 250.00 Diabetes Mellitus [employer] TECHNICIAN-C W/O Compl Type II Or Unspec Controlled 272.2 Hyperlipidemia Mixed Office Visit 11/24/2014 3:30p Main Office Rani Lim, 250.00 Diabetes Mellitus [employer] TECHNICIAN-C W/O Compl Type II Or Unspec Controlled 272.2 Hyperlipidemia Mixed Office Visit 10/09/2014 3:30p Main Office Rani Lim, 465.9 URI Upper [employer] TECHNICIAN-C Respiratory Infections Acute Unspec Sites 250.00 Diabetes Mellitus W/O Compl Type II Or Unspec Controlled Office Visit 07/31/2014 3:15p Main Office Desiree Emery 250.00 Diabetes Mellitus [place] Lutz W/O Compl Type II Or Unspec Controlled 278.00 Obesity Unspec 272.1 Hypertriglyceridemia Pure 272.2 Hyperlipidemia Mixed Office Visit 05/01/2014 2:00p Main Office Desiree Maher0.0 Examination General [place] Lutz Medical Routine AT [facility] Care Facility 250.00 Diabetes Mellitus W/O Compl Type II Or Unspec Controlled 278.00 Obesity Unspec 272.1 Hypertriglyceridemia Pure 272.2 Hyperlipidemia Mixed V04.81 Need For Prophylactic Vaccination & Inoculation/Influenza V03.82 Streptococcus Pneumoniae Vaccination Spec Other Office Visit 03/16/2014 9:15a Main Office Sarah Hawkins, 706.2 Sebaceous Cyst [employer] TECHNICIAN-C Office Visit 12/12/2013 3:00p Main Office Desiree Lutz, 278.00 Obesity Unspec M.D. 272.1 Hypertriglyceridemia Pure 272.2 Hyperlipidemia Mixed 250.00 Diabetes Mellitus W/O Compl Type II Or Unspec Controlled 553.1 Hernia Umbilical 684 Impetigo Office Visit 11/07/2013 11:15a Main Office Desiree Emery 789.05 Pain Abdominal [place] Lutz Periumbilic 553.1 Hernia Umbilical Office Visit 07/11/2013 2:45p Main Office Desiree Branham9.05 Pain Abdominal [place] Lutz Periumbilic Office Visit 04/25/2013 2:00p Main Office Desiree Maher0.0 Examination [place] Lutz General Medical Routine AT [facility] Care Facility 278.00 Obesity Unspec 272.1 Hypertriglyceridemia Pure 272.2 Hyperlipidemia Mixed 782.3 Edema 250.00 Diabetes Mellitus W/O Compl Type II Or Unspec Controlled V04.81 Need For Prophylactic Vaccination & Inoculation/Influenza Office Visit 03/03/2013 3:00p Main Office Desiree Emery 250.00 Diabetes Mellitus [place] Lutz W/O Compl Type II Or Unspec Controlled 272.1 Hypertriglyceridemia Pure 272.2 Hyperlipidemia Mixed 682.9 Cellulitis & Abscess Unspec Site Office Visit 09/03/2012 3:30p Main Office Desiree Emery 250.00 Diabetes Mellitus [place] Lutz W/O Compl Type II Or Unspec Controlled 272.2 Hyperlipidemia Mixed 272.1 Hypertriglyceridemia Pure 782.3 Edema Office Visit 07/02/2012 4:15p Main Office Desiree Emery 250.00 Diabetes Mellitus [place] Lutz W/O Compl Type II Or Unspec Controlled 272.2 Hyperlipidemia Mixed Office Visit 05/17/2012 3:15p Main Office Desiree Emery 250.00 Diabetes Mellitus [place] Lutz W/O Compl Type II Or Unspec Controlled 272.2 Hyperlipidemia Mixed 272.1 Hypertriglyceridemia Pure Office Visit 05/07/2012 9:00a Main Office Desiree Emery V70.0 Examination General [place] Lutz Medical Routine AT [facility] Care Facility 278.00 Obesity Unspec 250.00 Diabetes Mellitus W/O Compl Type II Or Unspec Controlled 272.2 Hyperlipidemia Mixed 272.1 Hypertriglyceridemia Pure 782.3 Edema V04.81 Need For Prophylactic Vaccination & Inoculation/Influenza Plan of Treatment 02/02/2019 - Piero Banda MDK59.00 Constipation, unspecifiedNew Medication: Miralax 3350 NF - 1 capful mixed as per directions in water by mouth daily until stooling resumes. as needed after 2 days without stool.Recommendations: Take 4-6 doses of miralax in an afternoon until clear water is passed from the rectum. Then take 1-2doses per day to keep soft stools. Gradually wean down to one dose and then zero. Plenty of fiber and water.
[2019-02-21 09:48] VITALS: BP 143/76
== END 2019-02-21 10:02 | disposition home or self-care (01) ==
LOC: UCEAST 09:30
DX: T16.2XXA Foreign body in left ear, initial encounter (principal); X58.XXXA Exposure to other specified factors, initial encounter; Y92.9 Unspecified place or not applicable; E11.9 Type 2 diabetes mellitus without complications; Z91.041 Radiographic dye allergy status; Z82.49 Family history of ischemic heart disease and other diseases of the circulatory system; Z83.3 Family history of diabetes mellitus
CPT/HCPCS: 69200; 99211; G0463